=== PATIENT | female | born 1950 | race Caucasian/White ===

== ENCOUNTER → 2017-03-27 | Outpatient (CLI) | payer MEDICARE | END | disposition home or self-care (01) | LOC: LABWHC1 09:51 | PROVIDERS: ATTEND Internal Medicine Endocrinology, Diabetes & Metabolism | DX: E05.80 Other thyrotoxicosis without thyrotoxic crisis or storm (principal) | CPT/HCPCS: 36415; 84439; 84443; 84445; 84480 ==

== ENCOUNTER 2018-04-02 21:32 | Inpatient (IN) | payer MEDICARE ==
--- NOTE | 2018-04-02 22:30 | ED ---
General Adult HPI - General Chief complaint: Weakness Stated complaint: WEAKNESS Source: patient, EMS Mode of arrival: EMS - History of Present Illness Initial comments: Dictation was produced using [employer] dictation software. please excuse any grammatical, word or spelling errors. Chief Complaint: 68-year-old female transferred from outside facility for electro derangement, EKG abnormalities. History of Present Illness: 68-year-old female past medical history diabetes, dyslipidemia, hypothyroidism presents via transfer from outside facility. Patient states she initially presented there for worsening weakness for the past 3 weeks. She was diagnosed with urinary tract infection and completed a course of Macrobid by her primary care physician. Patient was worked up at that facility where she was found to have nonspecific transaminitis , electrolyte derangement, EKG abnormalities. Patient feels much better since being treated at the other facility. Patient was worked up extensively. She did have pain CT of her whole body without any findings of acute processes. The ROS documented in this emergency department record has been reviewed and confirmed by me. Those systems with pertinent positive or negative responses have been documented in the HPI. All other systems are other negative and/or noncontributory. - Related Data Home Medications Medication Instructions Recorded Confirmed Acetaminophen Tab [Tylenol Tab] 1,000 mg PO Q6HR PRN 04/02/18 04/02/18 DULoxetine HCL [Cymbalta] 120 mg PO DAILY 04/02/18 04/02/18 Dicyclomine [Bentyl] 20 mg PO TID 04/02/18 04/02/18 Diphenox-Atrop 2.5-0.025 mg 2 tab PO QID 04/02/18 04/02/18 [Lomotil] Fenofibrate,Micronized 134 mg PO DAILY 04/02/18 04/02/18 [Fenofibrate] Gabapentin [Neurontin] 400 mg PO TID 04/02/18 04/02/18 Lisinopril [Zestril] 2.5 mg PO DAILY 04/02/18 04/02/18 Nitrofurantoin Monohyd/M-Cryst 100 mg PO Q12HR 04/02/18 04/02/18 [Macrobid] Omeprazole 20 mg PO DAILY 04/02/18 04/02/18 metFORMIN HCL 1,000 mg PO BID 07/11/18 07/11/18 sitaGLIPtin [Januvia] 50 mg PO DAILY 04/02/18 04/02/18 Allergies Allergy/AdvReac Type Severity Reaction Status Date / Time NSAIDS (Non-Steroidal Allergy Severe Unknown Verified 04/02/18 22:15 Anti-Inflamma Sulfa (Sulfonamide Allergy Severe Unknown Verified 04/02/18 22:15 Antibiotics) aspirin Allergy Intermediate Unknown Verified 04/02/18 22:15 Penicillins AdvReac Severe Rash/Hives Verified 04/02/18 22:15 erythromycin base AdvReac Diarrhea Verified 04/02/18 22:15 tetracycline AdvReac Rash/Hives Verified 04/02/18 22:15 Review of Systems ROS Statement: Those systems with pertinent positive or pertinent negative responses have been documented in the HPI. ROS Other: All systems not noted in ROS Statement are negative. Past Medical History Past Medical History: Diabetes Mellitus, Hyperlipidemia Additional Past Medical History / Comment(s): Hx opf High liver enzymes History of Any Multi-Drug Resistant Organisms: None Reported Past Surgical History: Appendectomy Past Psychological History: Depression Smoking Status: Former smoker Past Alcohol Use History: Occasional Past Drug Use History: None Reported General Exam - General Exam Comments Initial Comments: PHYSICAL EXAM: General Impression: Alert and oriented x3, not in acute distress HEENT: Normocephalic atraumatic, extra-ocular movements intact, pupils equal and reactive to light bilaterally, mucous membranes moist. Cardiovascular: Heart regular rate and rhythm, S1&S2 audible, no murmurs, rubs or gallops Chest: Lungs clear to auscultation bilaterally, no rhonchi, no wheeze, no rales Abdomen: Mild tenderness to palpation of the abdomen diffusely Musculoskeletal: Pulses present and equal in all extremities, no peripheral edema Motor: Power 5/5 bilaterally, no focal deficits noted Neurological: CN II-XII grossly intact, no focal motor or sensory deficits noted Skin: Intact with no visualized rashes Psych: Normal affect and mood Course Vital Signs 04/02/18 04/02/18 21:39 21:45 Temperature 97.7 F Pulse Rate 84 76 Respiratory 16 16 Rate Blood Pressure 101/49 109/67 O2 Sat by Pulse 95 100 Oximetry Medical Decision Making - Medical Decision Making ED course: 68-year-old female transferred to us for dehydration, electronic derangement and prolonged QT. Electro lites were replaced at transferring facility. Patient is well-appearing at this time. Vital signs are stable. Patient be admitted for continued hydration, electronic replacement and monitoring and cardiac telemetry. Imaging disc were transferred with patient. They'll agreeable to our local EMR. EKG Interpretation: A 12 lead EKG was obtained. It was interpreted by myself and attending physician. There is a P wave before every QRS complex. Rate is 80. Rhythm is normal sinus rhythm. QT is 569. Disposition Clinical Impression: Electrolyte abnormality Disposition: ADMITTED IP TO THIS HOSP Referrals: Dorina Burger MD [Primary Care Provider] - 1-2 days
[2018-04-02] MEDS ORDERED: NALOXONE 0.4 MG/ML 1 ML VIAL IV PRN (23:13)
[2018-04-03] MEDS: MORPHINE SULFATE 2 MG/ML SYRINGE IVP PRN ×4 (01:28→21:20)
[2018-04-03] MEDS: SODIUM CHLORIDE 0.9% 1,000 ML IV SCH ×4 (01:29→23:02)
--- NOTE | 2018-04-03 05:14 | P.HPIM ---
History of Present Illness H&P Date: 04/03/18 Chief Complaint: electrolyte imbalance and elevated liver enzymes 68 y old female , DM newly diagnosed, HLD, and ?hypertension she reports that her legs were jerking and she felt weak, she fell at the pharmacy when she was picking up her prescriptions, this is not her first fall, as she has been feeling weak and falling for the past couple weeks. her family took her home, and then her family insisted on taking her to the hospital , where they found electrolytes imbalance. she reports chronic diarrhea, used to be all day long loose bowel movement , but now controlled to once daily with lomotil. non bloody no black stool , no bleeding. denies any chest pain , no SOB , no fevers, no chills, no nausea no vomiting. she was diagnosed with UTI 2 days ago and received one dose of macrobid so far, denies any dysuria, but reports smelly urine, dark urine , and frequency Her liver enzymes has been elevated since october , and she follows up OP with GI, and all her tests are wnl. per her report November had colitis , resulting in diarrhea and abd cramps, which is chronic now since then. No diagnosis were made per her report, she had colonoscopy done 2 weeks ago and everything reported to be fine, she is still waiting on biopsy. Review of Systems Pertinent positives as noted in HPI. All other systems were reviewed and are negative Past Medical History Past Medical History: Diabetes Mellitus, Hyperlipidemia, Hypertension Additional Past Medical History / Comment(s): Hx of High liver enzymes History of Any Multi-Drug Resistant Organisms: None Reported Past Surgical History: Appendectomy Past Anesthesia/Blood Transfusion Reactions: No Reported Reaction Past Psychological History: Depression Smoking Status: Former smoker Past Alcohol Use History: Occasional Past Drug Use History: None Reported Additional Drug Use History / Comment(s): Pt. quit smoking in September of 2017 - Past Family History Father Family Medical History: Dementia Mother Family Medical History: Cancer Additional Family Medical History / Comment(s): Breast Cancer Medications and Allergies Home Medications Medication Instructions Recorded Confirmed Type Acetaminophen Tab [Tylenol Tab] 1,000 mg PO Q6HR PRN 04/02/18 04/02/18 History DULoxetine HCL [Cymbalta] 120 mg PO DAILY 04/02/18 04/02/18 History Dicyclomine [Bentyl] 20 mg PO TID 04/02/18 04/02/18 History Diphenox-Atrop 2.5-0.025 mg 2 tab PO QID 04/02/18 04/02/18 History [Lomotil] Fenofibrate,Micronized 134 mg PO DAILY 04/02/18 04/02/18 History [Fenofibrate] Gabapentin [Neurontin] 400 mg PO TID 04/02/18 04/02/18 History Lisinopril [Zestril] 2.5 mg PO DAILY 04/02/18 04/02/18 History Nitrofurantoin Monohyd/M-Cryst 100 mg PO Q12HR 04/02/18 04/02/18 History [Macrobid] Omeprazole 20 mg PO DAILY 04/02/18 04/02/18 History metFORMIN HCL 1,000 mg PO BID 04/02/18 04/02/18 History sitaGLIPtin [Januvia] 50 mg PO DAILY 04/02/18 04/02/18 History Allergies Allergy/AdvReac Type Severity Reaction Status Date / Time NSAIDS (Non-Steroidal Allergy Severe Unknown Verified 04/02/18 22:15 Anti-Inflamma Sulfa (Sulfonamide Allergy Severe Unknown Verified 04/02/18 22:15 Antibiotics) aspirin Allergy Intermediate Unknown Verified 04/02/18 22:15 Penicillins AdvReac Severe Rash/Hives Verified 04/02/18 22:15 erythromycin base AdvReac Diarrhea Verified 04/02/18 22:15 tetracycline AdvReac Rash/Hives Verified 04/02/18 22:15 Physical Exam Vitals: Vital Signs Temp Pulse Pulse Resp BP BP Pulse Ox 04/03/18 00:16 97.6 F 76 16 110/70 97 04/02/18 23:29 84 16 119/68 95 04/02/18 22:55 15 L 15 114/69 95 04/02/18 21:45 76 16 109/67 100 04/02/18 21:39 97.7 F 84 16 101/49 95 Intake and Output 04/02/18 04/02/18 04/03/18 14:59 22:59 06:59 Other: Weight 81.647 kg Constitutional: No acute distress, conversant, pleasant Eyes: Anicteric sclerae, moist conjunctiva, no lid-lag Pupils equal round reactive to light ENMT: NC/AT Oropharynx clear, no erythema, or exudates Neck: Supple, FROM, no masses, or JVD No carotid bruits No thyromegaly Lungs: Clear to auscultation Clear to percussion Normal respiratory effort, no accessory muscle use Cardiovascular: Heart regular in rate and rhythm, No murmurs, gallops, or rubs No peripheral edema Abdominal: Soft, tender to deep palpation over the left lower quadrant and left side of the abdomen no rebound tenderness, no guarding, rebound or rigidity Abdomen moving with respiration Normoactive bowel sounds No hepatomegaly, No splenomegaly No palpable mass No abdominal wall hernia noted Skin: Normal temperature, tone, texture, turgor No induration No subcutaneous nodules No rash, lesions No ulcers Extremities: No digital cyanosis No clubbing Pedal pulses intact and symmetrical Radial pulses intact and symmetrical No calf tenderness Psychiatric: Alert and oriented to person, place and time Appropriate affect fair judgment Neuro Muscles Strength 4/5 in all 4 extremities Sensation to light touch grossly present throughout Cranial nerves II-XII grossly intact No focal sensory deficits Lymphatics: no palpable cervical or supraclavicular , or inguinal lymph nodes Thrombosis Risk Factor Assmnt - Choose All That Apply Any of the Below Risk Factors Present?: Yes Each Factor Represents 1 point: Obesity (BMI >25) Other Risk Factors: Yes Each Risk Factor Represents 2 Points: Age 61-74 years Thrombosis Risk Factor Assessment Total Risk Factor Score: 3 Thrombosis Risk Factor Assessment Level: Moderate Risk Assessment and Plan Assessment: 68 y o female with history of diabetes mellitus newly diagnosed,? hypertension, and chronic diarrhea, patient [facility] with anticipated length of stay of more than 2 days due to s/p fall , presented with electrolytes abnormalities (hypokalemia ) and chronic diarrhea , abd pain and elevated liver enzymes. Patient initially went to a different facility where she was diagnosed with these abnormalities her electrolytes were replaced she was also found to have QT prolongation for which she was transferred to our hospital Plan: Electrolyte abnormalities most likely secondary to chronic diarrhea Hypokalemia Follow-up levels and replace as needed Follow-up potassium and magnesium and phosphorus levels Hyperbilirubinemia and elevated liver enzymes Per patient report this is chronic Check abdominal ultrasound Avoid hepatotoxic meds Fenofibrate on hold Tylenol on hold Recent diagnosis of UTI only received 1 dose of antibiotic Patient continues to have symptoms of frequent urination and odor with the urine Check urinalysis Hold antibiotics for now Chronic diarrhea and abdominal pain patient follows up with GI as an outpatient A battery of workup was diagnosed as now patient per patient report, everything was reported to her to be within normal limits including colonoscopy 2 weeks ago and CAT scan of the abdomen Consult to GI service for their input Symptomatic control of abdominal pain and diarrhea Diabetes mellitus on oral hypoglycemic agents Check A1c level Insulin sliding scale Hypertension continue lisinopril low-dose QT interval prolongation this has resolved after electrolyte replacement at the other facility Diet as tolerated carbohydrate consistent diet DVT prophylaxis on heparin subcu 3 times a day Follow-up UA Follow-up labs and electrolytes Preformed a thorough record review from recent recent visit to [place] facility her labs and EKG were reviewed where she had total bilirubin elevated at more than 5, and potassium at 2.8 Surrogate decision-maker: Patient's son CODE STATUS: Full code Discussed with: Patient, ER, RN Anticipated discharge: 48-[address]: Home A total of 50 minutes was spent on the care of this complex patient more than 50 % of the time was spent in counseling and care coordination.
[2018-04-03] MEDS: ONDANSETRON 4 MG/2 ML VIAL IVP PRN ×2 (06:34→16:02)
[2018-04-03] MEDS ORDERED: PANTOPRAZOLE 40 MG TABLET PO SCH (07:30)
[2018-04-03 07:57] LABS: Glucose,Whole Blood 71 mg/dL (75-99)
[2018-04-03] MEDS: INSULIN ASPART 100 UNIT/ML 1 ML 10 ML VIAL SQ SCH ×4 (08:03→21:48)
[2018-04-03] MEDS: DULoxetine HCL 60 MG CAPSULE.DR PO SCH (08:07)
[2018-04-03] MEDS: LISINOPRIL 2.5 MG TAB PO SCH (08:07)
[2018-04-03] MEDS: GABAPENTIN 400 MG CAP PO SCH ×3 (08:07→21:22)
[2018-04-03] MEDS: HEPARIN SODIUM,PORCINE 5,000 UNIT/ML 1 ML VIAL SQ SCH ×3 (08:07→23:02)
[2018-04-03 08:27] LABS: Anisocytosis Slight; Basophils # (A) 0.1 k/uL (0-0.2); Basophils % (A) 1 %; Eosinophils % (A) 0 %; HCT 40.9 % (34.0-46.0); HGB 13.2 gm/dL (11.4-16.0); Lymphocytes # (A) 2.2 k/uL (1.0-4.8); Lymphocytes % (A) 32 %; MCH 30.2 pg (25.0-35.0); MCHC 32.3 g/dL (31.0-37.0); MCV 93.6 fL (80.0-100.0); Macrocytosis Slight; Mean Platelet Volume 7.4; Monocytes # (A) 0.4 k/uL (0-1.0); Monocytes % (A) 5 %; Neutrophils # (A) 4.1 k/uL (1.3-7.7); Neutrophils % (A) 60 %; Platelet Count 234 k/uL (150-450); RBC 4.37 m/uL (3.80-5.40); WBC 6.9 k/uL (3.8-10.6)
[2018-04-03 08:47] LABS: ALT 162 U/L (9-52); AST 550 U/L (14-36); Albumin 3.1 g/dL (3.5-5.0); Alkaline Phosphatase 245 U/L (38-126); Anion Gap 7 mmol/L; Blood Urea Nitrogen 5 mg/dL (7-17); Carbon Dioxide 28 mmol/L (22-30); Chloride 104 mmol/L (98-107); Glucose 78 mg/dL (74-99); Magnesium 1.4 mg/dL (1.6-2.3); Phosphorus 3.2 mg/dL (2.5-4.5); Potassium 3.7 mmol/L (3.5-5.1); Sodium 139 mmol/L (137-145); Total Bilirubin 5.9 mg/dL (0.2-1.3); Total Protein 5.8 g/dL (6.3-8.2)
[2018-04-03] MEDS: MAGNESIUM SULFATE-D5W PMX 1 GM in DEXTROSE/WATER 1 100ML.BAG IVPB SCH ×2 (10:01→11:21)
[2018-04-03 10:25] LABS: Appearance,Urine Cloudy (Clear); Bacteria,Urine Many /hpf; Bilirubin,Urine 1+ (Negative); Blood,Urine Negative (Negative); Color,Urine Yellow; Glucose,Urine (UA) Negative (Negative); Ketones,Urine Negative (Negative); Leukocyte Esterase,Urine Small (Negative); Mucus,Urine Rare /hpf; Nitrite,Urine Negative (Negative); Protein,Urine Negative (Negative); RBC,Urine <1 /hpf (0-5); Specific Gravity,Urine 1.019 (1.001-1.035); WBC,Urine 8 /hpf (0-5)
[2018-04-03 11:41] LABS: Glucose,Whole Blood 113 mg/dL (75-99)
[2018-04-03] MEDS ORDERED: LOPERAMIDE 2 MG CAP PO STA (12:47)
--- NOTE | 2018-04-03 12:50 | P.CONS ---
History of Present Illness - Reason for Consult Consult date: 04/03/18 Diarrhea Requesting physician: Domi Chowdhury - History of Present Illness 68-year-old female transferred from [facility] recently treated in the outpatient setting for UTI; Macrobid, with a history of remote EtOH abuse quit September 2017, hepatic steatosis per US abdomen, with chronic elevation of liver enzymes being monitored in the outpatient setting, diabetes mellitus, hyperlipidemia, hypertension, depression admitted with persistent painless nonbloody diarrhea with electrolyte disturbance weakness. Patient has been experiencing nonbloody diarrhea multiple times a day since September unrelieved with antidiarrheals. She was evaluated earlier this year in September at an outside facility and told she had colitis. She has no personal history of colitis prior to September 2017. No familial history of inflammatory bowel disease. She underwent screening colonoscopy February [address] Burnett at [facility]; prep was poor however visualized portions of the colon appeared normal. No evidence of colorectal neoplasia or diverticular disease. Biopsies were obtained and reported as benign colonic mucosa with no inflammatory changes. She is visibly jaundiced total bilirubin is 5.9. AST 550. ALT 162. AP to 45. Upon review of medical records liver function tests 03/27/2018 was total bilirubin 4.8. AST 510. ALT 204. AP 244. Outpatient US abdomen demonstrated hepatic steatosis. Patient states she was treated with steroids by her PCP in regards to her jaundice but had a hyperglycemic reaction and discontinued them. She also reports that she had a full serologic chronic liver disease investigation of her jaundice by GI PA. CT abdomen and pelvis at [facility] reported a large hiatal hernia liver spleen gallbladder appeared normal with nondilated bile ducts and no ascites. Admission white count 6.9. Hemoglobin 13.2. Platelet 234. BUN 5. Creatinine 0.6. No recent medications with the exception of being placed on metformin earlier in the year shortly after her diarrhea started. She was told that metformin could have a diarrhea effect and stopped for 2 weeks but it did not improve her diarrhea. Her last dose of metformin was yesterday. Review of Systems Constitutional: Denies fever, chills, sweats, weight gain, or loss. HEENT: Negative for migraines, blurred vision or loss, earaches, drainage, tinnitus, oral mucosal lesions, dysphagia, or odynophagia. CARDIAC: Negative for chest pain, arrhythmias, or palpitation. RESPIRATORY: Negative for shortness of breath, hemoptysis, cough, or sputum production. GI: See HPI for pertinent findings. : Negative for hematuria, urgency, frequency, polyuria, or dysuria. GYNc: Negative vaginal discharge. MUSCULOSKELETAL: Negative for muscle aches, swelling, arthritis, and arthralgias. NEUROLOGIC: Negative for stroke or TIA. ENDOCRINE: Negative for thyroid problems. SKIN: Negative for rash or itching. PSYCHIATRIC: Negative history for depression and anxiety Past Medical History Past Medical History: Diabetes Mellitus, Hyperlipidemia, Hypertension Additional Past Medical History / Comment(s): Hx of High liver enzymes History of Any Multi-Drug Resistant Organisms: None Reported Past Surgical History: Appendectomy Past Anesthesia/Blood Transfusion Reactions: No Reported Reaction Past Psychological History: Depression Smoking Status: Former smoker Past Alcohol Use History: Occasional Past Drug Use History: None Reported Additional Drug Use History / Comment(s): Pt. quit smoking in September of 2017 - Past Family History Father Family Medical History: Dementia Mother Family Medical History: Cancer Additional Family Medical History / Comment(s): Breast Cancer Medications and Allergies Home Medications Medication Instructions Recorded Confirmed Type Acetaminophen Tab [Tylenol Tab] 1,000 mg PO Q6HR PRN 04/02/18 04/02/18 History DULoxetine HCL [Cymbalta] 120 mg PO DAILY 04/02/18 04/02/18 History Dicyclomine [Bentyl] 20 mg PO TID 04/02/18 04/02/18 History Diphenox-Atrop 2.5-0.025 mg 2 tab PO QID 04/02/18 04/02/18 History [Lomotil] Fenofibrate,Micronized 134 mg PO DAILY 04/02/18 04/02/18 History [Fenofibrate] Gabapentin [Neurontin] 400 mg PO TID 04/02/18 04/02/18 History Lisinopril [Zestril] 2.5 mg PO DAILY 04/02/18 04/02/18 History Nitrofurantoin Monohyd/M-Cryst 100 mg PO Q12HR 04/02/18 04/02/18 History [Macrobid] Omeprazole 20 mg PO DAILY 04/02/18 04/02/18 History metFORMIN HCL 1,000 mg PO BID 04/02/18 04/02/18 History sitaGLIPtin [Januvia] 50 mg PO DAILY 04/02/18 04/02/18 History Allergies Allergy/AdvReac Type Severity Reaction Status Date / Time NSAIDS (Non-Steroidal Allergy Severe Unknown Verified 04/02/18 22:15 Anti-Inflamma Sulfa (Sulfonamide Allergy Severe Unknown Verified 04/02/18 22:15 Antibiotics) aspirin Allergy Intermediate Unknown Verified 04/02/18 22:15 Penicillins AdvReac Severe Rash/Hives Verified 04/02/18 22:15 erythromycin base AdvReac Diarrhea Verified 04/02/18 22:15 tetracycline AdvReac Rash/Hives Verified 04/02/18 22:15 Physical Exam Vitals: Vital Signs Temp Pulse Pulse Resp BP BP Pulse Ox 04/03/18 08:00 71 18 04/03/18 07:10 97.7 F 71 18 122/75 95 04/03/18 00:16 97.6 F 76 16 110/70 97 04/02/18 23:29 84 16 119/68 95 04/02/18 22:55 15 L 15 114/69 95 04/02/18 21:45 76 16 109/67 100 04/02/18 21:39 97.7 F 84 16 101/49 95 Intake and Output 04/02/18 04/03/18 04/03/18 22:59 06:59 14:59 Intake Total 600 Balance 600 Intake: Intake, IV Titration 600 Amount Sodium Chloride 0.9% 1, 600 000 ml @ 100 mls/hr IV . Q10H [facility] Rx#:[id number] Other: Voiding Method Toilet Toilet # Voids 3 # Bowel Movements 0 Weight 81.647 kg General appearance: The patient is alert, oriented, in no acute distress. Visibly jaundice HET: Head is normocephalic and atraumatic. Pupils are equal and reactive. Sclerae icterus. Oropharynx is clear without lesions. Neck: Supple without lymphadenopathy. Trachea midline. Heart: S1 S2. Regular rate and rhythm. Lungs: No crackles or wheezes are heard. Abdomen: Soft, nontender, nondistended with bowel sounds. No peritoneal signs. No palpable organomegaly or masses. Extremities: Normal skin color and turgor. No cyanosis, rash, ulceration, clubbing, or edema. Radial and pedal pulses are 2/4 bilaterally. Neurological: No focal deficits. Strength and sensation are grossly intact. Results CBC & Chem 7: 04/03/18 07:05 04/04/18 07:58 Labs: Abnormal Lab Results - Last 24 Hours (Table) 04/03/18 04/03/18 04/03/18 Range/Units 07:05 07:05 07:51 RDW 19.0 H (11.5-15.5) % BUN 5 L (7-17) mg/dL POC Glucose (mg/dL) 71 L (75-99) mg/dL Magnesium 1.4 L (1.6-2.3) mg/dL Total Bilirubin 5.9 H (0.2-1.3) mg/dL AST 550 H (14-36) U/L ALT 162 H (9-52) U/L Alkaline Phosphatase 245 H (38-126) U/L Total Protein 5.8 L (6.3-8.2) g/dL Albumin 3.1 L (3.5-5.0) g/dL Urine Appearance (Clear) Urine Bilirubin (Negative) Ur Leukocyte Esterase (Negative) Urine WBC (0-5) /hpf Urine Bacteria (None) /hpf Urine Mucus (None) /hpf 04/03/18 04/03/18 Range/Units 09:44 11:08 RDW (11.5-15.5) % BUN (7-17) mg/dL POC Glucose (mg/dL) 113 H (75-99) mg/dL Magnesium (1.6-2.3) mg/dL Total Bilirubin (0.2-1.3) mg/dL AST (14-36) U/L ALT (9-52) U/L Alkaline Phosphatase (38-126) U/L Total Protein (6.3-8.2) g/dL Albumin (3.5-5.0) g/dL Urine Appearance Cloudy H (Clear) Urine Bilirubin 1+ H (Negative) Ur Leukocyte Esterase Small H (Negative) Urine WBC 8 H (0-5) /hpf Urine Bacteria Many H (None) /hpf Urine Mucus Rare H (None) /hpf Assessment and Plan (1) Diarrhea Narrative/Plan: Etiology unclear cannot exclude medication related (metformin). Recent colonoscopy unremarkable negative biopsies. Current Visit: Yes Status: Acute Code(s): R19.7 - DIARRHEA, UNSPECIFIED SNOMED Code(s): 62737863 (2) Hepatic steatosis Current Visit: Yes Status: Acute Code(s): K76.0 - FATTY (CHANGE OF) LIVER, NOT ELSEWHERE CLASSIFIED SNOMED Code(s): 821352529 (3) Jaundice Narrative/Plan: Suspect a component of steatohepatitis with superimposed alcohol hepatitis history of underlying EtOH abuse however confirmation of chronic liver disease autoimmune disease cannot be entirely excluded until office records can be reviewed. Current Visit: Yes Status: Acute Code(s): R17 - UNSPECIFIED JAUNDICE SNOMED Code(s): 30945138 (4) Elevated liver enzymes Current Visit: Yes Status: Acute Code(s): R74.8 - ABNORMAL LEVELS OF OTHER SERUM ENZYMES SNOMED Code(s): 524341241 (5) Diabetes Current Visit: Yes Status: Acute Code(s): E11.9 - TYPE 2 DIABETES MELLITUS WITHOUT COMPLICATIONS SNOMED Code(s): 98406572 (6) Hyperlipidemia Current Visit: Yes Status: Acute Code(s): E78.5 - HYPERLIPIDEMIA, UNSPECIFIED SNOMED Code(s): 43163488 Plan: 1. Stool studies; culture, Giardia antigen, Clostridium difficile toxin, lactoferrin, Calprotectin. Celiac panel. 2. Acute hepatitis panel. AFP. Hold metformin. Imodium 2 mg 3 times daily will provide 4 mg dose 1 now. 3. US abdomen. 4. Diabetic diet as tolerated. We'll review office records to review if serologic workup for chronic liver disease has been obtained. 5. MRI liver further evaluation of jaundice. Possible liver biopsy if not performed previously. Thank you for this kind referral and the opportunity to participate in the care of your patient. This consultation was discussed with Dr. Burnett. The impression and plan of care have been directed as dictated.
[2018-04-03 12:59] VITALS: BMI 29.0
--- NOTE | 2018-04-03 14:34 | US ---
EXAMINATION TYPE: US abdomen complete DATE OF EXAM: 04/03/2018 COMPARISON: Outside CT on PACS from yesterday. CLINICAL HISTORY: elevated liver enzymes. Elevated liver enzymes EXAM MEASUREMENTS: Liver Length: 13.2 cm Gallbladder Wall: 0.4 cm CBD: 0.4 cm Spleen: 10.0 cm Right Kidney: 10.3 x 4.6 x 4.9 cm Left Kidney: 10.2 x 4.9 x 4.8 cm Difficult and limited study due to patient body habitus Pancreas: visualized portions appear hyperechoic, limited by overlying midline bowel gas Liver: visualized portions appear mildly heterogeneous, scanned intercostally, limited by rib shadow ing Gallbladder: wall appears mildly thickened, scanned intercostally, limited by rib shadowing Evidence for sonographic Mcleod's sign: yes CBD: wnl Spleen: wnl Right Kidney: wnl Left Kidney: wnl Upper IVC: wnl Abd Aorta: visualized portions wnl, limited by overlying midline bowel gas The visualized liver is slightly heterogeneous likely reflecting mild fatty infiltration. The intrah epatic portion of the IVC and visualized abdominal aorta are within normal limits. There is no evide nce of cholelithiasis. Common bile duct is unremarkable. The visualized portions of the pancreas ar e homogenous. The spleen is unremarkable. Kidneys are symmetric and free of hydronephrosis. No ashley al lesions are seen. IMPRESSION: Heterogeneous hyperechoic appearance of liver is likely on basis of mild diffuse fatty in filtration. Imaging guided random biopsy for tissue analysis can be performed if desired.
[2018-04-03] MEDS: LOPERAMIDE 2 MG CAP PO SCH ×2 (15:57→21:21)
[2018-04-03 17:03] LABS: Glucose,Whole Blood 145 mg/dL (75-99)
[2018-04-03 17:19] LABS: Hemoglobin A1C 6.7 % (4.0-6.0)
[2018-04-03 21:31] LABS: Glucose,Whole Blood 128 mg/dL (75-99)
[2018-04-04] MEDS: MORPHINE SULFATE 2 MG/ML SYRINGE IVP PRN ×4 (04:30→21:16)
[2018-04-04 07:54] LABS: Glucose,Whole Blood 83 mg/dL (75-99)
[2018-04-04] MEDS: INSULIN ASPART 100 UNIT/ML 1 ML 10 ML VIAL SQ SCH ×4 (08:17→20:49)
[2018-04-04 08:29] LABS: INR 1.4 (<1.2); Prothrombin Time 13.4 sec (9.0-12.0)
[2018-04-04 08:45] LABS: ALT 155 U/L (9-52); AST 493 U/L (14-36); Albumin 3.1 g/dL (3.5-5.0); Alkaline Phosphatase 252 U/L (38-126); Anion Gap 9 mmol/L; Blood Urea Nitrogen 7 mg/dL (7-17); Calcium 8.6 mg/dL (8.4-10.2); Carbon Dioxide 25 mmol/L (22-30); Chloride 105 mmol/L (98-107); Glucose 91 mg/dL (74-99); Potassium 3.9 mmol/L (3.5-5.1); Sodium 139 mmol/L (137-145); Total Bilirubin 5.5 mg/dL (0.2-1.3); Total Protein 5.8 g/dL (6.3-8.2)
[2018-04-04] MEDS: DULoxetine HCL 60 MG CAPSULE.DR PO SCH (09:15)
[2018-04-04] MEDS: FAMOTIDINE 20 MG TAB PO SCH (09:15)
[2018-04-04] MEDS: LISINOPRIL 2.5 MG TAB PO SCH (09:16)
[2018-04-04] MEDS: GABAPENTIN 400 MG CAP PO SCH ×3 (09:16→21:15)
[2018-04-04] MEDS: HEPARIN SODIUM,PORCINE 5,000 UNIT/ML 1 ML VIAL SQ SCH (09:16)
[2018-04-04] MEDS: LOPERAMIDE 2 MG CAP PO SCH ×3 (09:17→21:16)
--- NOTE | 2018-04-04 10:37 | P.PN ---
Subjective Progress Note Date: 04/04/18 Principal diagnosis: Diarrhea jaundice elevated liver enzymes No further episodes of diarrhea therefore stool studies not obtained. MRI liver completed today secondary to elevated liver enzymes. Denies abdominal pain. Patient states no history of liver biopsy. Last alcohol was in September. Objective - Vital Signs Vital signs: Vital Signs Temp 98.8 F 04/04/18 07:00 Pulse 73 04/04/18 08:00 Resp 18 04/04/18 08:00 BP 123/73 04/04/18 07:00 Pulse Ox 94 L 04/04/18 07:00 Intake & Output 04/03/18 04/04/18 04/04/18 18:59 06:59 18:59 Intake Total 1140 480 Balance 1140 480 Weight 81.647 kg Intake: IV 700 Sodium Chloride 0.9% 1, 700 000 ml @ 100 mls/hr IV . Q10H SHANEKA Rx#:[id number] Oral 440 480 Other: Voiding Method Toilet Toilet # Voids 2 - Exam General appearance: The patient is alert, oriented, in no acute distress. Jaundice. HET: Head is normocephalic and atraumatic. Pupils are equal and reactive. Sclerae icterus. Oropharynx is clear without lesions. Neck: Supple without lymphadenopathy. Trachea midline. Heart: S1 S2. Regular rate and rhythm. Lungs: No crackles or wheezes are heard. Abdomen: Soft, nontender, nondistended with bowel sounds. No peritoneal signs. No palpable organomegaly or masses. Extremities: Normal skin color and turgor. No cyanosis, rash, ulceration, clubbing, or edema. Radial and pedal pulses are 2/4 bilaterally. Neurological: No focal deficits. Strength and sensation are grossly intact. - Labs CBC & Chem 7: 04/03/18 07:05 04/04/18 07:58 Labs: Abnormal Lab Results - Last 24 Hours (Table) 04/03/18 04/03/18 04/03/18 Range/Units 07:05 07:05 11:08 PT (9.0-12.0) sec INR (<1.2) POC Glucose (mg/dL) 113 H (75-99) mg/dL Hemoglobin A1c 6.7 H (4.0-6.0) % Total Bilirubin (0.2-1.3) mg/dL AST (14-36) U/L ALT (9-52) U/L Alkaline Phosphatase (38-126) U/L C-Reactive Protein 41.6 H (<10.0) mg/L Total Protein (6.3-8.2) g/dL Albumin (3.5-5.0) g/dL 04/03/18 04/03/18 04/04/18 Range/Units 16:59 21:29 07:58 PT (9.0-12.0) sec INR (<1.2) POC Glucose (mg/dL) 145 H 128 H (75-99) mg/dL Hemoglobin A1c (4.0-6.0) % Total Bilirubin 5.5 H (0.2-1.3) mg/dL AST 493 H (14-36) U/L ALT 155 H (9-52) U/L Alkaline Phosphatase 252 H (38-126) U/L C-Reactive Protein (<10.0) mg/L Total Protein 5.8 L (6.3-8.2) g/dL Albumin 3.1 L (3.5-5.0) g/dL 04/04/18 Range/Units 07:58 PT 13.4 H (9.0-12.0) sec INR 1.4 H (<1.2) POC Glucose (mg/dL) (75-99) mg/dL Hemoglobin A1c (4.0-6.0) % Total Bilirubin (0.2-1.3) mg/dL AST (14-36) U/L ALT (9-52) U/L Alkaline Phosphatase (38-126) U/L C-Reactive Protein (<10.0) mg/L Total Protein (6.3-8.2) g/dL Albumin (3.5-5.0) g/dL Microbiology - Last 24 Hours (Table) 04/03/18 09:44 Urine Culture - Preliminary Urine,Clean Catch Assessment and Plan (1) Jaundice Narrative/Plan: Suspect a component of 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 Current Visit: Yes Status: Acute Code(s): R17 - UNSPECIFIED JAUNDICE SNOMED Code(s): 64142899 (2) Diarrhea Narrative/Plan: Etiology unclear cannot exclude medication related (metformin). Recent colonoscopy unremarkable negative biopsies. Presently diarrhea has stopped. Current Visit: Yes Status: Acute Code(s): R19.7 - DIARRHEA, UNSPECIFIED SNOMED Code(s): 97301779 (3) Hepatic steatosis Current Visit: Yes Status: Acute Code(s): K76.0 - FATTY (CHANGE OF) LIVER, NOT ELSEWHERE CLASSIFIED SNOMED Code(s): 653836869 (4) Elevated liver enzymes Current Visit: Yes Status: Acute Code(s): R74.8 - ABNORMAL LEVELS OF OTHER SERUM ENZYMES SNOMED Code(s): 928293959 (5) Diabetes Current Visit: Yes Status: Acute Code(s): E11.9 - TYPE 2 DIABETES MELLITUS WITHOUT COMPLICATIONS SNOMED Code(s): 62249639 (6) Hyperlipidemia Current Visit: Yes Status: Acute Code(s): E78.5 - HYPERLIPIDEMIA, UNSPECIFIED SNOMED Code(s): 18778145 Plan: 1. Office records reviewed patient's liver enzymes in January at outside facility total bilirubin 0.9 AST 361. ALT 207. AP 157. Liver enzymes repeated one month ago total bilirubin was 1.5. AST 409. ALT 279. AP 164. INR 1.1. She was advised liver biopsy if her jaundice and/or enzymes worsen. Considering patient is now jaundice over the last month liver biopsy was advised. We'll attempt liver biopsy today if unable to perform will need to be done as an outpatient. PT/INR/CMP 1 week. MRI results pending. We'll continue to follow with you. Continue with Imodium. Continue to hold metformin. Follow-up in [facility] office April 18. Assessment and plan a care discussed with Dr. Burnett
[2018-04-04 11:20] LABS: Glucose,Whole Blood 128 mg/dL (75-99)
--- NOTE | 2018-04-04 13:20 | P.PN ---
Subjective Progress Note Date: 04/04/18 Principal diagnosis: Weakness Patient is feeling better today, her last bowel movement was on Saturday. She still having some lower abdominal pain. Objective - Vital Signs Vital signs: Vital Signs Temp 98.8 F 04/04/18 07:00 Pulse 73 04/04/18 08:00 Resp 18 04/04/18 08:00 BP 123/73 04/04/18 07:00 Pulse Ox 94 L 04/04/18 07:00 Intake & Output 04/03/18 04/04/18 04/04/18 18:59 06:59 18:59 Intake Total 1140 480 Balance 1140 480 Weight 81.647 kg Intake: IV 700 Sodium Chloride 0.9% 1, 700 000 ml @ 100 mls/hr IV . Q10H SHANEKA Rx#:[id number] Oral 440 480 Other: Voiding Method Toilet Toilet # Voids 2 - Exam Constitutional: No acute distress, conversant, pleasant Eyes:Anicteric sclerae, moist conjunctiva, no lid-lag, PERRLA, ENMT: Oropharynx clear, no erythema, exudates Neck: Supple, FROM, no masses, or JVD, No carotid bruits, No thyromegaly Lungs: Clear to auscultation, Clear to percussion, Normal respiratory effort, no accessory muscle use Cardiovascular: Heart regular in rate and rhythm, No murmurs, gallops, or rubs, No peripheral edema Abdominal: Soft, Nontender, no guarding, rebound or rigidity, Normoactive bowel sounds, No hepatomegaly, No splenomegaly, No palpable mass Skin: Normal temperature, tone, texture, turgor, no induration, No subcutaneous nodules, No rash, lesions, No ulcers Extremities: No digital cyanosis, No clubbing, Pedal pulses intact and symmetrical, Radial pulses intact and symmetrical, No calf tenderness Psychiatric: Alert and oriented to person, place and time, appropriate affect, intact judgement Neuro: Muscles Strength 5/5 in all 4 extremities, Sensation to light touch grossly present throughout, Cranial nerves II-XII grossly intact, no focal sensory deficits - Labs CBC & Chem 7: 04/03/18 07:05 04/04/18 07:58 Labs: Abnormal Lab Results - Last 24 Hours (Table) 04/03/18 04/03/18 04/03/18 Range/Units 07:05 07:05 16:59 PT (9.0-12.0) sec INR (<1.2) POC Glucose (mg/dL) 145 H (75-99) mg/dL Hemoglobin A1c 6.7 H (4.0-6.0) % Total Bilirubin (0.2-1.3) mg/dL AST (14-36) U/L ALT (9-52) U/L Alkaline Phosphatase (38-126) U/L C-Reactive Protein 41.6 H (<10.0) mg/L Total Protein (6.3-8.2) g/dL Albumin (3.5-5.0) g/dL 04/03/18 04/04/18 04/04/18 Range/Units 21:29 07:58 07:58 PT 13.4 H (9.0-12.0) sec INR 1.4 H (<1.2) POC Glucose (mg/dL) 128 H (75-99) mg/dL Hemoglobin A1c (4.0-6.0) % Total Bilirubin 5.5 H (0.2-1.3) mg/dL AST 493 H (14-36) U/L ALT 155 H (9-52) U/L Alkaline Phosphatase 252 H (38-126) U/L C-Reactive Protein (<10.0) mg/L Total Protein 5.8 L (6.3-8.2) g/dL Albumin 3.1 L (3.5-5.0) g/dL 04/04/18 Range/Units 11:10 PT (9.0-12.0) sec INR (<1.2) POC Glucose (mg/dL) 128 H (75-99) mg/dL Hemoglobin A1c (4.0-6.0) % Total Bilirubin (0.2-1.3) mg/dL AST (14-36) U/L ALT (9-52) U/L Alkaline Phosphatase (38-126) U/L C-Reactive Protein (<10.0) mg/L Total Protein (6.3-8.2) g/dL Albumin (3.5-5.0) g/dL Microbiology - Last 24 Hours (Table) 04/03/18 09:44 Urine Culture - Preliminary Urine,Clean Catch Assessment and Plan Plan: Electrolyte abnormalities most likely secondary to chronic diarrhea/Hypokalemia Replaced Follow-up potassium and magnesium and phosphorus levels Hyperbilirubinemia and elevated liver enzymes Problem with the liver started about 2-3 months ago. Seen by GI Ultrasound abdomen reviewed MRI pending Liver biopsy recommended Tylenol and fenofibrate on hold because of liver toxicity UTI Continue ceftriaxone 1 g IV daily Urine cultures Diabetes mellitus on oral hypoglycemic agents A1c 6.7 Insulin sliding scale Hypertension Continue lisinopril low-dose DVT prophylaxis on heparin subcu 3 times a day
--- NOTE | 2018-04-04 13:41 | MR ---
MR liver with and without contrast and MRCP Multiplanar multisequence and postcontrast images obtained through the liver following 7.5 cc Gadavis t IV. Three-dimensional reconstructions performed through the biliary system. Correlation to outside CT abdomen pelvis 04/02/2018, ultrasound abdomen 04/03/2018 There is a large hiatal hernia with partial intrathoracic stomach present. Proximal duodenum shows pr obable large duodenal diverticulum with retained secretions or food particles at the second and third portion, there is dilation to approximately 5 cm at this level similar to CT scan. There is normal c aliber present at the fourth portion of the duodenum. The liver does not show signal drop on out of phase imaging to suggest hepatic steatosis. There is ev entration of right hemidiaphragm, no definite liver enlargement. Gallbladder shows no filling defect. No definite dilation of intra or extrahepatic biliary ducts. 3-dimensional reconstructions are somew hat limited. The liver shows somewhat heterogeneous enhancement. Periportal edema changes are noted, increased sig nal on T2-weighted sequences in the periportal location, gradual delayed periportal enhancement is pr esent. There may be small pleural effusions present, associated atelectasis. The kidneys, adrenal glands, spleen, pancreas shows stable appearance. No significant abnormality. IMPRESSION: Findings consistent with hepatitis. Suspect a large duodenal diverticulum. Fixed intratho racic stomach as described. Correlate for additional nonspecific findings above.
[2018-04-04] MEDS: cefTRIAXone IN SWFI 1,000 MG/10 ML SYRINGE IVP SCH (14:02)
[2018-04-04] MEDS: SODIUM CHLORIDE 0.9% 1,000 ML IV SCH ×2 (15:34→21:17)
[2018-04-04 17:08] LABS: Gliadin AB IgA, Unit 5.2 U/mL
[2018-04-04 17:12] LABS: Hepatitis A Antibody IgM Non-Reactive (Non-Reactive); Hepatitis B Core IgM Non-Reactive (Non-Reactive)
[2018-04-04 17:28] LABS: Glucose,Whole Blood 139 mg/dL (75-99)
[2018-04-04 20:49] LABS: Glucose,Whole Blood 106 mg/dL (75-99)
[2018-04-05] MEDS: MORPHINE SULFATE 2 MG/ML SYRINGE IVP PRN ×2 (05:13→09:05)
[2018-04-05 06:39] LABS: Glucose,Whole Blood 91 mg/dL (75-99)
[2018-04-05] MEDS: INSULIN ASPART 100 UNIT/ML 1 ML 10 ML VIAL SQ SCH ×4 (07:40→21:46)
[2018-04-05] MEDS: LISINOPRIL 2.5 MG TAB PO SCH (09:00)
[2018-04-05] MEDS: DULoxetine HCL 60 MG CAPSULE.DR PO SCH (09:00)
[2018-04-05] MEDS: LOPERAMIDE 2 MG CAP PO SCH ×3 (09:00→21:41)
[2018-04-05] MEDS: GABAPENTIN 400 MG CAP PO SCH ×3 (09:00→21:40)
[2018-04-05] MEDS: FAMOTIDINE 20 MG TAB PO SCH (09:01)
[2018-04-05] MEDS: SODIUM CHLORIDE 0.9% 1,000 ML IV SCH (12:01)
[2018-04-05 12:05] LABS: Glucose,Whole Blood 129 mg/dL (75-99)
[2018-04-05] MEDS: cefTRIAXone IN SWFI 1,000 MG/10 ML SYRINGE IVP SCH (12:37)
--- NOTE | 2018-04-05 12:58 | P.PN ---
Subjective Progress Note Date: 04/05/18 Principal diagnosis: Weakness Doing well, no complaints. Further history taking revealed that patient has been ingesting a lot of Benadryl and melatonin, she takes up to 8-10 tablets of each each night to go to sleep. Objective - Vital Signs Vital signs: Vital Signs Temp 98.6 F 04/05/18 08:00 Pulse 91 04/05/18 08:00 Resp 18 04/05/18 08:00 BP 105/67 04/05/18 08:00 Pulse Ox 95 04/05/18 08:00 Intake & Output 04/04/18 04/05/18 04/05/18 18:59 06:59 18:59 Intake Total 2320 240 Balance 2320 240 Weight 81.647 kg Intake: Oral 2320 240 Other: Voiding Method Toilet # Voids 1 2 1 # Bowel Movements 1 - Exam Constitutional: No acute distress, conversant, pleasant Eyes: icteric sclerae, moist conjunctiva, no lid-lag, PERRLA, ENMT: Oropharynx clear, no erythema, exudates Neck: Supple, FROM, no masses, or JVD, No carotid bruits, No thyromegaly Lungs: Clear to auscultation, Clear to percussion, Normal respiratory effort, no accessory muscle use Cardiovascular: Heart regular in rate and rhythm, No murmurs, gallops, or rubs, No peripheral edema Abdominal: Soft, Nontender, no guarding, rebound or rigidity, Normoactive bowel sounds, No hepatomegaly, No splenomegaly, No palpable mass Skin: Normal temperature, tone, texture, turgor, no induration, No subcutaneous nodules, No rash, lesions, No ulcers Extremities: No digital cyanosis, No clubbing, Pedal pulses intact and symmetrical, Radial pulses intact and symmetrical, No calf tenderness Psychiatric: Alert and oriented to person, place and time, appropriate affect, intact judgement Neuro: Bilateral arms fine tremors, Muscles Strength 5/5 in all 4 extremities, Sensation to light touch grossly present throughout, Cranial nerves II-XII grossly intact, no focal sensory deficits - Labs CBC & Chem 7: 04/03/18 07:05 04/04/18 07:58 Labs: Abnormal Lab Results - Last 24 Hours (Table) 04/04/18 04/04/18 04/04/18 Range/Units 07:58 12:45 17:26 POC Glucose (mg/dL) 139 H (75-99) mg/dL Tumor Marker AFP 17.2 H (0.0-7.9) ng/mL Stool Lactoferrin POSITIVE H (NEGATIVE) 04/04/18 04/05/18 Range/Units 20:48 12:03 POC Glucose (mg/dL) 106 H 129 H (75-99) mg/dL Tumor Marker AFP (0.0-7.9) ng/mL Stool Lactoferrin (NEGATIVE) Microbiology - Last 24 Hours (Table) 04/03/18 09:44 Urine Culture - Final Urine,Clean Catch Klebsiella pneumoniae 04/04/18 12:45 Stool Culture - Preliminary Stool Assessment and Plan Plan: Electrolyte abnormalities most likely secondary to chronic diarrhea/Hypokalemia Replaced Hyperbilirubinemia and elevated liver enzymes Seen by GI Ultrasound abdomen reviewed MRI reviewed--showing hepatitis Liver biopsy recommended--will be done outpatient on April 16 Tylenol, metformin and fenofibrate on hold because of liver toxicity Counselled not to take excessive amount of melatonin and benadryl. UTI Continue ceftriaxone 1 g IV daily Urine cultures growing K.pneumonia Diabetes mellitus on oral hypoglycemic agents A1c 6.7 Insulin sliding scale Hypertension Continue lisinopril low-dose DVT prophylaxis Now ambulatory D/C heparin
[2018-04-05 13:30] LABS: Anisocytosis Slight; HCT 38.8 % (34.0-46.0); HGB 12.3 gm/dL (11.4-16.0); MCH 29.9 pg (25.0-35.0); MCHC 31.8 g/dL (31.0-37.0); Macrocytosis Slight; Mean Platelet Volume 7.5; Platelet Count 167 k/uL (150-450); RBC 4.13 m/uL (3.80-5.40); RDW 18.9 % (11.5-15.5); WBC 5.8 k/uL (3.8-10.6)
[2018-04-05 13:40] LABS: Amylase 49 U/L (30-110); Anion Gap 10 mmol/L; Blood Urea Nitrogen 5 mg/dL (7-17); Calcium 8.4 mg/dL (8.4-10.2); Carbon Dioxide 26 mmol/L (22-30); Chloride 103 mmol/L (98-107); Glucose 140 mg/dL (74-99); Lipase 203 U/L (23-300); Phosphorus 2.7 mg/dL (2.5-4.5); Potassium 3.8 mmol/L (3.5-5.1); Sodium 139 mmol/L (137-145)
[2018-04-05] MEDS ORDERED: MAGNESIUM SULFATE-D5W PMX 1 GM in DEXTROSE/WATER 1 100ML.BAG IVPB SCH (14:31)
[2018-04-05] MEDS: MAGNESIUM SULFATE-D5W PMX 1 GM in DEXTROSE/WATER 1 100ML.BAG IVPB SCH ×4 (15:35→18:54)
[2018-04-05 17:20] LABS: Glucose,Whole Blood 116 mg/dL (75-99)
[2018-04-05 21:47] LABS: Glucose,Whole Blood 104 mg/dL (75-99)
[2018-04-06 07:37] LABS: Glucose,Whole Blood 106 mg/dL (75-99)
[2018-04-06] MEDS: INSULIN ASPART 100 UNIT/ML 1 ML 10 ML VIAL SQ SCH ×4 (07:59→21:16)
[2018-04-06] MEDS: DULoxetine HCL 60 MG CAPSULE.DR PO SCH (09:24)
[2018-04-06] MEDS: FAMOTIDINE 20 MG TAB PO SCH (09:24)
[2018-04-06] MEDS: GABAPENTIN 400 MG CAP PO SCH ×3 (09:25→21:34)
[2018-04-06] MEDS: LISINOPRIL 2.5 MG TAB PO SCH (09:25)
[2018-04-06] MEDS: LOPERAMIDE 2 MG CAP PO SCH (09:25)
[2018-04-06] MEDS: cefTRIAXone IN SWFI 1,000 MG/10 ML SYRINGE IVP SCH (09:30)
[2018-04-06 11:48] LABS: Glucose,Whole Blood 125 mg/dL (75-99)
--- NOTE | 2018-04-06 13:05 | P.PN ---
Subjective Progress Note Date: 04/06/18 Principal diagnosis: Weakness Patient is constipated, her last BM was 5 days ago. Still having lower abdominal cramps. Objective - Vital Signs Vital signs: Vital Signs Temp 97.8 F 04/06/18 11:33 Pulse 77 04/06/18 11:33 Resp 16 04/06/18 11:33 BP 108/69 04/06/18 11:33 Pulse Ox 92 L 04/06/18 11:33 Intake & Output 04/05/18 04/06/18 04/06/18 18:59 06:59 18:59 Intake Total 1440 Balance 1440 Intake: IV 700 Sodium Chloride 0.9% 1, 700 000 ml @ 100 mls/hr IV . Q10H SHANEKA Rx#:[id number] Oral 740 Other: # Voids 2 1 1 - Exam Constitutional: No acute distress, conversant, pleasant Eyes: icteric sclerae, moist conjunctiva, no lid-lag, PERRLA, ENMT: Oropharynx clear, no erythema, exudates Neck: Supple, FROM, no masses, or JVD, No carotid bruits, No thyromegaly Lungs: Clear to auscultation, Clear to percussion, Normal respiratory effort, no accessory muscle use Cardiovascular: Heart regular in rate and rhythm, No murmurs, gallops, or rubs, No peripheral edema Abdominal: Soft, Nontender, no guarding, rebound or rigidity, Normoactive bowel sounds, No hepatomegaly, No splenomegaly, No palpable mass Skin: Normal temperature, tone, texture, turgor, no induration, No subcutaneous nodules, No rash, lesions, No ulcers Extremities: No digital cyanosis, No clubbing, Pedal pulses intact and symmetrical, Radial pulses intact and symmetrical, No calf tenderness Psychiatric: Alert and oriented to person, place and time, appropriate affect, intact judgement Neuro: Bilateral arms fine tremors, Muscles Strength 5/5 in all 4 extremities, Sensation to light touch grossly present throughout, Cranial nerves II-XII grossly intact, no focal sensory deficits - Labs CBC & Chem 7: 04/05/18 13:10 04/05/18 13:10 Labs: Abnormal Lab Results - Last 24 Hours (Table) 04/05/18 04/05/18 04/05/18 Range/Units 13:10 13:10 17:19 RDW 18.9 H (11.5-15.5) % BUN 5 L (7-17) mg/dL Glucose 140 H (74-99) mg/dL POC Glucose (mg/dL) 116 H (75-99) mg/dL Magnesium 1.0 L* (1.6-2.3) mg/dL 04/05/18 04/06/18 04/06/18 Range/Units 21:45 07:30 11:45 RDW (11.5-15.5) % BUN (7-17) mg/dL Glucose (74-99) mg/dL POC Glucose (mg/dL) 104 H 106 H 125 H (75-99) mg/dL Magnesium (1.6-2.3) mg/dL Assessment and Plan Plan: Electrolyte abnormalities most likely secondary to chronic diarrhea including hypokalemia and hypomagnesemia Replaced Recheck Hyperbilirubinemia and elevated liver enzymes Seen by GI Ultrasound abdomen reviewed MRI reviewed--showing hepatitis Liver biopsy recommended--will be done outpatient on April 16 Tylenol, metformin and fenofibrate on hold because of liver toxicity Counselled not to take excessive amount of melatonin and benadryl. Severe constipation Likely narcotic-induced MiraLAX and docusate/senna Watching for bowel movement UTI Status post treatment with ceftriaxone Diabetes mellitus on oral hypoglycemic agents A1c 6.7 Insulin sliding scale Hypertension Continue lisinopril low-dose DVT prophylaxis Now ambulatory D/C heparin
[2018-04-06 13:14] LABS: Anion Gap 8 mmol/L; Blood Urea Nitrogen 6 mg/dL (7-17); Calcium 8.6 mg/dL (8.4-10.2); Carbon Dioxide 26 mmol/L (22-30); Chloride 103 mmol/L (98-107); Glucose 132 mg/dL (74-99); Magnesium 1.5 mg/dL (1.6-2.3); Phosphorus 2.5 mg/dL (2.5-4.5); Potassium 4.1 mmol/L (3.5-5.1); Sodium 137 mmol/L (137-145)
[2018-04-06] MEDS ORDERED: POLYETHYLENE GLYCOL 3350 17 GM POWD.PACK PO SCH (13:15)
[2018-04-06] MEDS ORDERED: SENNOSIDES-DOCUSATE SODIUM 1 EACH TAB PO SCH (13:15)
[2018-04-06] MEDS: MAGNESIUM SULFATE-D5W PMX 1 GM in DEXTROSE/WATER 1 100ML.BAG IVPB SCH ×4 (14:15→18:46)
[2018-04-06 17:06] LABS: Glucose,Whole Blood 112 mg/dL (75-99)
[2018-04-06 21:09] LABS: Glucose,Whole Blood 118 mg/dL (75-99)
[2018-04-07 07:05] LABS: Glucose,Whole Blood 93 mg/dL (75-99)
[2018-04-07 07:59] LABS: Anion Gap 7 mmol/L; Blood Urea Nitrogen 5 mg/dL (7-17); Calcium 8.8 mg/dL (8.4-10.2); Carbon Dioxide 26 mmol/L (22-30); Chloride 104 mmol/L (98-107); Glucose 99 mg/dL (74-99); Magnesium 1.8 mg/dL (1.6-2.3); Potassium 4.1 mmol/L (3.5-5.1); Sodium 137 mmol/L (137-145)
[2018-04-07] MEDS: FAMOTIDINE 20 MG TAB PO SCH (08:52)
[2018-04-07] MEDS: GABAPENTIN 400 MG CAP PO SCH (08:52)
[2018-04-07] MEDS: LISINOPRIL 2.5 MG TAB PO SCH (08:52)
[2018-04-07] MEDS: DULoxetine HCL 60 MG CAPSULE.DR PO SCH (08:52)
[2018-04-07 09:43] VITALS: BP 114/73; PULSE 84; RESP 18; TEMP 98.4
[2018-04-07] MEDS: INSULIN ASPART 100 UNIT/ML 1 ML 10 ML VIAL SQ SCH ×2 (10:09→12:16)
[2018-04-07 11:55] LABS: Glucose,Whole Blood 84 mg/dL (75-99)
--- NOTE | 2018-04-07 15:06 | P.DS ---
Providers Date of admission: 04/02/18 22:30 Expected date of discharge: 04/07/18 Attending physician: Domi Chowdhury MD Consults: 04/03/18 05:16 Consult Physician Routine Consulting Provider: Eliecer Burnett Consult Reason/Comments: chronic abd pain and diarrhea, known to doc Do you want consulting provider notified?: Yes Primary care physician: Doirna Burger Hospital Course: 68 y old female with hx of DM newly diagnosed, HLD, and ?hypertension presented to the ER because her legs were jerking and she felt weak. She fell at the pharmacy when she was picking up her prescriptions, this was not her first fall , as she was feeling weak and falling for the past couple weeks. She also reported chronic diarrhea, with all day long loose bowel movements, was on lomotil. Stools non bloody, no black stool. No chest pain , no SOB, no fevers, no chills, no nausea no vomiting. Of note she was diagnosed with UTI 2 days prior to admission and received one dose of macrobid so far, denied any dysuria , but reported smelly urine, dark urine , and frequency. Also in November she had colitis , resulting in diarrhea and abd cramps, which is chronic now since then. No diagnosis were made per her report, she had colonoscopy done 2 weeks ago and everything reported to be fine, she is still waiting on biopsy. Her liver enzymes have been elevated since october , and she follows up OP with GI. Bilirubin was also high at 5.3. Her AST was 550 on admission, ALT 162. Patient was evaluated by GI. Her hepatitis panel was negative. Alpha- fetoprotein was elevated at 17. MRI of the liver shows evidence of hepatitis. No masses were found. Liver failure and transaminitis was suspected to be secondary to excessive Tylenol use versus secondary to alcohol. Patient admitted that she was taking excessive amount of melatonin and Benadryl to sleep but he denied taking extra Tylenol. Patient magnesium was very low throughout the admission and she was given multiple doses of magnesium replacement. Also throughout the admission patient was found to have confusion and disorientation, ammonia level was found to be 53 , elevated. Throughout the admission she was complaining from abdominal pain. The admitting physician started her on morphine IV for that on an as-needed basis and I noticed that she was getting it as a scheduled every 4 hours. I discontinued the morphine and patient became significantly upset. I switched it to oxycodone at a later stage. Towards the end of admission she was significantly constipated, she was started on stool softeners and I had to discontinue the oxycodone. I told the patient that her abdominal pain was most likely secondary to constipation induced by narcotics. She was offered alternative pain control medications including NSAIDs. From GI perspective patient could go home with outpatient follow-up for liver biopsy but I did not think that patient can be safely discharged at this point. I arranged for the patient to be transferred to [facility] in order to have complete GI workup. Patient and are both agreeable to the transfer. Discharge diagnoses Liver failure, unknown etiology, could be secondary to alcohol versus Tylenol abuse Jaundice Hepatic encephalopathy Falls and weakness Diabetes type 2 Hyperlipidemia Essential hypertension Plan - Discharge Summary Discharge Rx Participant: Yes New Discharge Prescriptions: Continue Diphenox-Atrop 2.5-0.025 mg [Lomotil] 2 tab PO QID sitaGLIPtin [Januvia] 50 mg PO DAILY Lisinopril [Zestril] 2.5 mg PO DAILY Gabapentin [Neurontin] 400 mg PO TID Omeprazole 20 mg PO DAILY Discontinued Nitrofurantoin Monohyd/M-Cryst [Macrobid] 100 mg PO Q12HR Dicyclomine [Bentyl] 20 mg PO TID metFORMIN HCL 1,000 mg PO BID Acetaminophen Tab [Tylenol Tab] 1,000 mg PO Q6HR PRN PRN Reason: Pain Fenofibrate,Micronized [Fenofibrate] 134 mg PO DAILY DULoxetine HCL [Cymbalta] 120 mg PO DAILY Discharge Medication List Diphenox-Atrop 2.5-0.025 mg [Lomotil] 2 tab PO QID 04/02/18 [History] Gabapentin [Neurontin] 400 mg PO TID 04/02/18 [History] Lisinopril [Zestril] 2.5 mg PO DAILY 04/02/18 [History] Omeprazole 20 mg PO DAILY 04/02/18 [History] sitaGLIPtin [Januvia] 50 mg PO DAILY 04/02/18 [History] Follow up Appointment(s)/Referral(s): Dorina Burger MD [Primary Care Provider] - 1-2 days Shelly Amaral PAC [REFERRING] - 04/18/18 9:45 am ([facility]) Ambulatory/Diagnostic Orders: Comprehensive Metabolic Panel [LAB.AMB] Time Frame: 1 Week, Location: None Selected Prothrombin Time INR [LAB.AMB] Time Frame: 1 Week, Location: None Selected Miscellaneous Radiology Order [RAD.AMB] Location: None Selected Activity/Diet/Wound Care/Special Instructions: [facility] - [phone] - will deliver to bedside before discharge Clothes are located behind nurse station 4W Discharge Disposition: OTHER INSTITUTION NOT DEFINED
== END 2018-04-07 13:56 | disposition short-term general hospital (02) | DRG 442 ==
LOC: EC 21:32 → 3SUR 22:30 → 6PED 04-04 15:59 → 4MS4W 04-07 11:25
PROVIDERS: ADMIT Internal Medicine; ATTEND Internal Medicine
DX: K71.10 Toxic liver disease with hepatic necrosis, without coma (principal); N39.0 Urinary tract infection, site not specified; T39.1X5A Adverse effect of 4-Aminophenol derivatives, initial encounter; E03.9 Hypothyroidism, unspecified; E11.65 Type 2 diabetes mellitus with hyperglycemia; E78.5 Hyperlipidemia, unspecified; E86.0 Dehydration; E87.6 Hypokalemia; F32.9 Major depressive disorder, single episode, unspecified; G89.29 Other chronic pain; I10 Essential (primary) hypertension; K44.9 Diaphragmatic hernia without obstruction or gangrene; K59.03 Drug induced constipation; K76.0 Fatty (change of) liver, not elsewhere classified; T40.605A Adverse effect of unspecified narcotics, initial encounter; Z79.84 Long term (current) use of oral hypoglycemic drugs; Z79.899 Other long term (current) drug therapy; Z80.3 Family history of malignant neoplasm of breast; Z87.891 Personal history of nicotine dependence; K70.40 Alcoholic hepatic failure without coma; R19.7 Diarrhea, unspecified; Z91.81 History of falling; Z88.6 Allergy status to analgesic agent; Z88.1 Allergy status to other antibiotic agents; Z88.0 Allergy status to penicillin; Z88.2 Allergy status to sulfonamides
CPT/HCPCS: 74183; 76700; 80048; 80053; 80074; 81001; 82105; 82140; 82150; 83036; 83516; 83630; 83690; 83735; 83993; 84100; 85025; 85027; 85610; 86140; 87045; 87046; 87077; 87086; 87186; 87324; 87329; 99285

== ENCOUNTER 2018-05-07 13:54 | Inpatient (IN) | payer MEDICARE ==
[2018-05-07] MEDS ORDERED: SODIUM CHLORIDE 0.9% 1,000 ML IV STA ×2 (15:07)
[2018-05-07] MEDS ORDERED: ONDANSETRON 4 MG/2 ML VIAL IVP STA (15:07)
[2018-05-07] MEDS ORDERED: PANTOPRAZOLE 40 MG/10 ML VIAL IVP STA (15:07)
[2018-05-07] MEDS ORDERED: MORPHINE SULFATE 2 MG/ML SYRINGE IVP STA (15:07)
--- NOTE | 2018-05-07 15:24 | ED ---
General Adult HPI <Sebas Tate - Last Filed: 05/07/18 19:14> - General Source: patient, RN notes reviewed, old records reviewed Mode of arrival: ambulatory Limitations: no limitations <MarquisAraceli - Last Filed: 05/07/18 20:02> - General Chief complaint: Recheck/Abnormal Lab/Rx Stated complaint: liver enzymes-sent by Time Seen by Provider: 05/07/18 14:47 - History of Present Illness Initial comments: This patient's a 68-year-old female presents emergency department today with chief complaint of right upper quadrant abdominal pain, and elevated liver enzymes. Patient ports that they've been fluctuating up and down for the past few months. Her PCP called her due to abnormal blood work yesterday [facility]. Patient states that she was sent in for further evaluation. She's had vomiting episodes as well as significant diarrhea. She reports that her urine has been quite dark. She states her skin seems to be yellow and she is quite. It. Patient states that she has been evaluated by GI and they're unsure why her liver enzymes continue to fluctuate. (Araceli Cho) - Related Data Home Medications Medication Instructions Recorded Confirmed Diphenox-Atrop 2.5-0.025 mg 2 tab PO QID 04/02/18 05/07/18 [Lomotil] Gabapentin [Neurontin] 400 mg PO TID 04/02/18 05/07/18 Lisinopril [Zestril] 2.5 mg PO DAILY 04/02/18 05/07/18 Omeprazole 20 mg PO DAILY 04/02/18 05/07/18 sitaGLIPtin [Januvia] 50 mg PO DAILY 04/02/18 05/07/18 DULoxetine HCL [Cymbalta] 60 mg PO BID 05/07/18 05/07/18 Dicyclomine [Bentyl] 20 mg PO QID 05/07/18 05/07/18 Fenofibrate,Micronized 134 mg PO DAILY 05/07/18 05/07/18 [Fenofibrate] metFORMIN HCL 1,000 mg PO BID 05/07/18 05/07/18 Allergies Allergy/AdvReac Type Severity Reaction Status Date / Time NSAIDS (Non-Steroidal Allergy Severe Unknown Verified 05/07/18 15:00 Anti-Inflamma Sulfa (Sulfonamide Allergy Severe Unknown Verified 05/07/18 15:00 Antibiotics) aspirin Allergy Intermediate Unknown Verified 05/07/18 15:00 Penicillins AdvReac Severe Rash/Hives Verified 05/07/18 15:00 erythromycin base AdvReac Diarrhea Verified 05/07/18 15:00 tetracycline AdvReac Rash/Hives Verified 05/07/18 15:00 Review of Systems ROS Other: All systems not noted in ROS Statement are negative. <Sebas Tate - Last Filed: 05/07/18 19:14> ROS Other: All systems not noted in ROS Statement are negative. <Buffy Choily - Last Filed: 05/07/18 20:02> ROS Statement: Those systems with pertinent positive or pertinent negative responses have been documented in the HPI. Past Medical History Past Medical History: Diabetes Mellitus, Hyperlipidemia, Hypertension Additional Past Medical History / Comment(s): Hx of High liver enzymes History of Any Multi-Drug Resistant Organisms: None Reported Past Surgical History: Appendectomy Past Anesthesia/Blood Transfusion Reactions: No Reported Reaction Past Psychological History: Depression Smoking Status: Former smoker Past Alcohol Use History: Occasional Past Drug Use History: None Reported - Past Family History Father Family Medical History: Dementia Mother Family Medical History: Cancer Additional Family Medical History / Comment(s): Breast Cancer <Araceli Cho - Last Filed: 05/07/18 20:02> General Exam <BebetoSebas - Last Filed: 05/07/18 19:14> Limitations: no limitations General appearance: alert, in no apparent distress Head exam: Present: atraumatic, normocephalic, normal inspection Eye exam: Present: normal appearance, PERRL, EOMI, scleral icterus. Absent: conjunctival injection, periorbital swelling ENT exam: Present: normal exam, mucous membranes moist Neck exam: Present: normal inspection. Absent: tenderness, meningismus, lymphadenopathy Respiratory exam: Present: normal lung sounds bilaterally. Absent: respiratory distress, wheezes, rales, rhonchi, stridor Cardiovascular Exam: Present: regular rate, normal rhythm, normal heart sounds. Absent: systolic murmur, diastolic murmur, rubs, gallop, clicks GI/Abdominal exam: Present: tenderness ( right Upper quadrant tenderness.), normal bowel sounds. Absent: soft, distended, guarding, rebound, rigid Extremities exam: Present: normal inspection, full ROM, normal capillary refill. Absent: tenderness, pedal edema, joint swelling, calf tenderness Back exam: Present: normal inspection Neurological exam: Present: alert, oriented X3, CN II-XII intact Psychiatric exam: Present: normal affect, normal mood Skin exam: Present: warm, dry, intact. Absent: normal color (icteric), rash <Araceli Cho - Last Filed: 05/07/18 20:02> - General Exam Comments Initial Comments: 68-year-old female. Alert and oriented. No significant distress. (Araceli Cho) Course <Sebas Tate - Last Filed: 05/07/18 19:14> <Araceli Cho - Last Filed: 05/07/18 20:02> Vital Signs 05/07/18 05/07/18 05/07/18 14:28 18:44 19:46 Temperature 99.1 F Pulse Rate 93 83 80 Respiratory 18 18 17 Rate Blood Pressure 109/77 111/63 115/68 O2 Sat by Pulse 95 97 97 Oximetry - Reevaluation(s) Reevaluation #1: 05/07/18 19:14 PA supervision: I personally saw and examined the patient. I reviewed and agree with the PA findings including all diagnostic interpretations and treatment plans is written unless otherwise stated. Is discussed with Dr. Clark. (Sebas Tate) Medical Decision Making - Lab Data Result diagrams: 05/07/18 14:53 05/07/18 14:53 <Sebas Tate - Last Filed: 05/07/18 19:14> - Lab Data Result diagrams: 05/07/18 14:53 05/07/18 14:53 - Radiology Data Radiology results: report reviewed <Araceli Cho - Last Filed: 05/07/18 20:02> - Medical Decision Making 68-year-old female presents today with nausea vomiting right upper quadrant abdominal pain, sent for abnormal lab work from PCP. She's had elevated liver enzymes. Her ammonia level today is 66. She does complain of some diarrhea however he did have to give the Patient lactulose. Patient liver enzymes are elevated, 200. Total bilirubin is 4.5. This is somewhat decreased from her previous lab work in the emergency department a few months ago. At this time Patient is complaining of increasing confusion occasionally most likely related to her ammonia level. Carissa wayne Patient this time for IV fluids and consult to GI. I did complete an ultrasound of her gallbladder which was negative for any acute process at this time. (Araceli Cho) - Lab Data Lab Results 05/07/18 05/07/18 05/07/18 Range/Units 14:53 14:53 14:53 WBC 8.2 (3.8-10.6) k/uL RBC 4.25 (3.80-5.40) m/uL Hgb 13.9 (11.4-16.0) gm/dL Hct 41.6 (34.0-46.0) % MCV 98.0 (80.0-100.0) fL MCH 32.8 (25.0-35.0) pg MCHC 33.4 (31.0-37.0) g/dL RDW 15.3 (11.5-15.5) % Plt Count 251 (150-450) k/uL Neutrophils % 70 % Lymphocytes % 19 % Monocytes % 9 % Eosinophils % 0 % Basophils % 0 % Neutrophils # 5.7 (1.3-7.7) k/uL Lymphocytes # 1.5 (1.0-4.8) k/uL Monocytes # 0.7 (0-1.0) k/uL Eosinophils # 0.0 (0-0.7) k/uL Basophils # 0.0 (0-0.2) k/uL Sodium 138 (137-145) mmol/L Potassium 4.9 (3.5-5.1) mmol/L Chloride 104 (98-107) mmol/L Carbon Dioxide 25 (22-30) mmol/L Anion Gap 9 mmol/L BUN 15 (7-17) mg/dL Creatinine 0.90 (0.52-1.04) mg/dL Est GFR (CKD-EPI)AfAm 77 (>60 ml/min/1.73 sqM) Est GFR (CKD-EPI)NonAf 67 (>60 ml/min/1.73 sqM) Glucose 98 (74-99) mg/dL Calcium 9.3 (8.4-10.2) mg/dL Total Bilirubin 4.5 H (0.2-1.3) mg/dL Conjugated Bilirubin 1.4 H (0.0-0.3) mg/dL Unconjugated Bilirubin 0.8 (0.0-1.1) mg/dL Delta Bilirubin 2.3 H (0.0-0.2) mg/dL AST 259 H (14-36) U/L ALT 163 H (9-52) U/L Alkaline Phosphatase 194 H (38-126) U/L Ammonia (<30) umol/L Total Protein 7.0 (6.3-8.2) g/dL Albumin 3.8 (3.5-5.0) g/dL Amylase 57 (30-110) U/L Lipase 120 (23-300) U/L Urine Color Yellow Urine Appearance Clear (Clear) Urine pH 5.5 (5.0-8.0) Ur Specific [place] 1.014 (1.001-1.035) Urine Protein Negative (Negative) Urine Glucose (UA) Negative (Negative) Urine Ketones Negative (Negative) Urine Blood Negative (Negative) Urine Nitrite Negative (Negative) Urine Bilirubin 1+ H (Negative) Urine Urobilinogen <2.0 (<2.0) mg/dL Ur Leukocyte Esterase Negative (Negative) 05/07/18 Range/Units 14:53 WBC (3.8-10.6) k/uL RBC (3.80-5.40) m/uL Hgb (11.4-16.0) gm/dL Hct (34.0-46.0) % MCV (80.0-100.0) fL MCH (25.0-35.0) pg MCHC (31.0-37.0) g/dL RDW (11.5-15.5) % Plt Count (150-450) k/uL Neutrophils % % Lymphocytes % % Monocytes % % Eosinophils % % Basophils % % Neutrophils # (1.3-7.7) k/uL Lymphocytes # (1.0-4.8) k/uL Monocytes # (0-1.0) k/uL Eosinophils # (0-0.7) k/uL Basophils # (0-0.2) k/uL Sodium (137-145) mmol/L Potassium (3.5-5.1) mmol/L Chloride (98-107) mmol/L Carbon Dioxide (22-30) mmol/L Anion Gap mmol/L BUN (7-17) mg/dL Creatinine (0.52-1.04) mg/dL Est GFR (CKD-EPI)AfAm (>60 ml/min/1.73 sqM) Est GFR (CKD-EPI)NonAf (>60 ml/min/1.73 sqM) Glucose (74-99) mg/dL Calcium (8.4-10.2) mg/dL Total Bilirubin (0.2-1.3) mg/dL Conjugated Bilirubin (0.0-0.3) mg/dL Unconjugated Bilirubin (0.0-1.1) mg/dL Delta Bilirubin (0.0-0.2) mg/dL AST (14-36) U/L ALT (9-52) U/L Alkaline Phosphatase (38-126) U/L Ammonia 66 H (<30) umol/L Total Protein (6.3-8.2) g/dL Albumin (3.5-5.0) g/dL Amylase (30-110) U/L Lipase (23-300) U/L Urine Color Urine Appearance (Clear) Urine pH (5.0-8.0) Ur Specific [place] (1.001-1.035) Urine Protein (Negative) Urine Glucose (UA) (Negative) Urine Ketones (Negative) Urine Blood (Negative) Urine Nitrite (Negative) Urine Bilirubin (Negative) Urine Urobilinogen (<2.0) mg/dL Ur Leukocyte Esterase (Negative) 05/07/18 19:50 EKG shows normal sinus rhythm low voltage QRS. Ventricular rate of 80 bpm. OH interval is 152 ms. QRS duration 72 ms. QT QTc is 390/449 ms. (Araceli Cho ) - Radiology Data No gallstones or dilated ducts. No free fluid. No adverse changes compared old exam. Large hiatal hernia. Normal colonic bowel gas. (Araceli Cho) Disposition <Sebas Tate - Last Filed: 05/07/18 19:14> Time of Disposition: 20:02 <Araceli Cho - Last Filed: 05/07/18 20:02> Clinical Impression: Increased ammonia level, Bilirubinemia, Abdominal pain, Nausea & vomiting Disposition: ADMITTED IP TO THIS [facility] Condition: Good Instructions: Abdominal Pain (ED) Referrals: Dorina Burger MD [Primary Care Provider] - 1-2 days
--- NOTE | 2018-05-07 16:15 | XR ---
EXAMINATION TYPE: XR KUB DATE OF EXAM: 05/07/2018 COMPARISON: None INDICATION: Pain diarrhea TECHNIQUE: Single view abdomen upright view FINDINGS: There is a normal bowel gas pattern. Psoas margins are normal. No organomegaly is present. No suspicious air-fluid levels are present. No free air is present. There is a large hiatal hernia pr esent. No mass effect is evident. IMPRESSION: 1. Large hiatal hernia. 2. Normal colonic bowel gas
[2018-05-07 16:32] LABS: Appearance,Urine Clear (Clear); Basophils % (A) 0 %; Bilirubin,Urine 1+ (Negative); Blood,Urine Negative (Negative); Color,Urine Yellow; Eosinophils % (A) 0 %; Glucose,Urine (UA) Negative (Negative); HCT 41.6 % (34.0-46.0); HGB 13.9 gm/dL (11.4-16.0); Ketones,Urine Negative (Negative); Leukocyte Esterase,Urine Negative (Negative); Lymphocytes # (A) 1.5 k/uL (1.0-4.8); Lymphocytes % (A) 19 %; MCH 32.8 pg (25.0-35.0); MCHC 33.4 g/dL (31.0-37.0); Mean Platelet Volume 8.7; Monocytes # (A) 0.7 k/uL (0-1.0); Monocytes % (A) 9 %; Neutrophils # (A) 5.7 k/uL (1.3-7.7); Neutrophils % (A) 70 %; Nitrite,Urine Negative (Negative); PH, Urine 5.5 (5.0-8.0); Platelet Count 251 k/uL (150-450); Protein,Urine Negative (Negative); RBC 4.25 m/uL (3.80-5.40); RDW 15.3 % (11.5-15.5); Specific Gravity,Urine 1.014 (1.001-1.035); Urobilinogen,Urine <2.0 mg/dL (<2.0); WBC 8.2 k/uL (3.8-10.6)
[2018-05-07 16:49] LABS: Albumin 3.8 g/dL (3.5-5.0); Bilirubin, Conjugated 1.4 mg/dL (0.0-0.3); Bilirubin, Delta 2.3 mg/dL (0.0-0.2); Bilirubin,Unconjugated 0.8 mg/dL (0.0-1.1); Calcium 9.3 mg/dL (8.4-10.2); Potassium 4.9 mmol/L (3.5-5.1); Total Bilirubin 4.5 mg/dL (0.2-1.3)
[2018-05-07] MEDS ORDERED: LACTULOSE 20 GM/30 ML CUP PO ONE (17:34)
--- NOTE | 2018-05-07 18:08 | US ---
EXAMINATION TYPE: US gallbladder DATE OF EXAM: 05/07/2018 COMPARISON: 04/03/2018 CLINICAL HISTORY: Pain. Elevated liver enzymes. Exam limited due to body habitus and overlying bowel gas. EXAM MEASUREMENTS: Liver Length: 12.8 cm Gallbladder Wall: 0.30 cm CBD: 0.39 cm Right Kidney: 10.1 x 4.5 x 3.7 cm Exam limited. Pancreas: Obscured by bowel gas Liver: Heterogenous limited dues to bowel gas and rib shadowing had to scan intercoastal. Gallbladder: No stones seen Evidence for sonographic Mcleod's sign: No CBD: wnl Right Kidney: No hydronephrosis or masses seen IMPRESSION: No gallstones or dilated ducts. No free fluid. No adverse change compared to old exam.
[2018-05-07] MEDS ORDERED: KETOROLAC 30 MG/ML 1 ML VIAL IVP STA (18:33)
[2018-05-07] MEDS ORDERED: MORPHINE SULFATE 4 MG/ML SYRINGE IVP STA (18:35)
[2018-05-07] MEDS ORDERED: ACETAMINOPHEN TAB 325 MG TAB PO PRN (19:55)
[2018-05-07] MEDS ORDERED: NALOXONE 0.4 MG/ML 1 ML VIAL IV PRN (19:55)
[2018-05-07 21:12] LABS: Glucose,Whole Blood 100 mg/dL (75-99)
[2018-05-07] MEDS: metFORMIN 500 MG TAB PO SCH (22:09)
[2018-05-07] MEDS: DULoxetine HCL 60 MG CAPSULE.DR PO SCH (22:09)
[2018-05-07] MEDS: GABAPENTIN 400 MG CAP PO SCH (22:09)
[2018-05-07] MEDS: DICYCLOMINE 20 MG TAB PO SCH (22:09)
[2018-05-07] MEDS: SODIUM CHLORIDE 0.9% 1,000 ML IV SCH (22:10)
[2018-05-08] MEDS: ONDANSETRON 4 MG/2 ML VIAL IVP PRN ×2 (00:05→21:01)
[2018-05-08] MEDS: HYDROcodone/APAP 5-325MG 1 EACH TAB PO PRN ×2 (00:05→07:43)
--- NOTE | 2018-05-08 06:18 | HP ---
HISTORY AND PHYSICAL DATE OF SERVICE: 05/07/2018 CHIEF COMPLAINT: Abdominal pain. HISTORY OF PRESENT ILLNESS: This 68-year-old woman with a past medical history of diabetes, hypertension, hyperlipidemia, appendectomy, being followed by Dr. Dorina Burger in the outpatient setting is complaining of abdominal pain. The pain was felt more in the right upper quadrant upper abdominal area. Liver enzymes are elevated. The patient was taken to [facility] and admitted for evaluation and treatment. The patient also had some nausea, vomiting episode. There is no history of any fever or rigors. No history of headache, loss of consciousness, or seizures. PAST MEDICAL HISTORY: History of diabetes, hypertension, hyperlipidemia, history of depression. MEDICATIONS: Medications prior to admission include home medications are: 1. Januvia 50 mg p.o. daily. 2. Metformin 1000 mg p.o. b.i.d. 3. Omeprazole 20 mg p.o. daily. 4. Zestril 2.5 mg daily. 5. Neurontin 400 mg p.o. t.i.d. 6. Fenofibrate 134 mg p.o. daily. 7. Lomotil 2 tablets p.o. q.i.d. 8. Bentyl 20 mg p.o. q.i.d. 9. Cymbalta 60 mg p.o. b.i.d. ALLERGIES: NSAID, SULFA, ASPIRIN, PENICILLIN, ERYTHROMYCIN BASE, TETRACYCLINE. FAMILY HISTORY: History of dementia and breast cancer in the family. SOCIAL HISTORY: History of previous significant alcohol intake. Previous history of smoking. REVIEW OF SYSTEMS: ENT: No diminished hearing or diminished vision. CARDIOVASCULAR SYSTEM: No angina. RESPIRATORY SYSTEM: No cough. GI: As mentioned earlier. : No dysuria. NERVOUS SYSTEM: No numbness or weakness. ALLERGY/IMMUNOLOGY: No asthma. MUSCULOSKELETAL: As mentioned earlier. HEMATOLOGY/ONCOLOGY: No history of anemia. ENDOCRINE: No history of hypothyroidism. CONSTITUTIONAL: As mentioned earlier. DERMATOLOGY: Negative. RHEUMATOLOGY: Negative. PSYCHIATRY: As mentioned earlier. PHYSICAL EXAM: The patient is alert and oriented x3. Pulse 83, blood pressure 119/80, respirations 16, temperature 97.3, pulse ox 96% on room air. HEENT: Conjunctivae normal. Oral mucosa moist. Neck is no jugular venous distention. No carotid bruit. No lymph node enlargement. CARDIOVASCULAR: S1 and S2 muffled. No S3, no S4. RESPIRATORY: Breath sounds diminished at the bases. Few scattered rhonchi. No crackles. ABDOMEN: Soft, obese. Mild diffuse discomfort. No guarding. No rigidity. No mass palpable. LEGS: No edema, no swelling. NERVOUS SYSTEM: Higher functions as mentioned. Moves all 4 limbs. No focal motor or sensory deficits. LYMPHATICS: No lymphadenopathy of the neck, axillae or groin. SKIN: No ulcer, rash or bleeding. LABS: Labs are at this time show CBC within normal limits and glucose is 100 and total bilirubin is 4.5, conjugated is 1.4 and AST is 259, ALT is 169. Ammonia is 66. ASSESSMENT: 1. Abdominal pain, possibly hepatitis, alcoholic hepatitis. 2. History of chronic liver disease secondary to alcohol. 3. Diabetes . 4. Hypertension. 5. Hyperlipidemia. 6. Anxiety, depression. 7. History of nicotine dependence. 8. Increased ammonia. RECOMMENDATIONS AND DISCUSSION: In this 68-year-old woman who presented with multiple medical problems, will monitor the patient closely, symptomatic treatment. Will repeat labs. Otherwise, gastroenterology consultation. Other than that, I would also recommend lactulose as well and will serially follow ammonia. Prognosis guarded because of multiple complex medical issues. Further recommendations to follow. A copy of dictation forwarded to Dr. Dorina Burger who is the primary physician. See orders for details. MMODL / IJN: [id number] / MTDD
[2018-05-08] MEDS: SODIUM CHLORIDE 0.9% 1,000 ML IV SCH ×2 (06:29→15:25)
[2018-05-08] MEDS: IOPAMIDOL-300 CONTRAST 30 ML VIAL (ORAL USE) PO PRN ×2 (06:42→07:43)
[2018-05-08] MEDS ORDERED: PANTOPRAZOLE 40 MG TABLET PO SCH (07:30)
[2018-05-08 07:31] LABS: Glucose,Whole Blood 81 mg/dL (75-99)
[2018-05-08] MEDS: INSULIN ASPART 100 UNIT/ML 1 ML 10 ML VIAL SQ SCH ×4 (07:45→20:58)
[2018-05-08 08:04] LABS: INR 1.4 (<1.2); Prothrombin Time 13.2 sec (9.0-12.0)
[2018-05-08 08:11] LABS: Albumin 3.3 g/dL (3.5-5.0); Calcium 8.8 mg/dL (8.4-10.2); Potassium 4.4 mmol/L (3.5-5.1); Total Bilirubin 5.2 mg/dL (0.2-1.3); Total Protein 6.4 g/dL (6.3-8.2)
[2018-05-08] MEDS: GABAPENTIN 400 MG CAP PO SCH ×3 (08:38→21:02)
[2018-05-08] MEDS: DICYCLOMINE 20 MG TAB PO SCH ×4 (08:38→21:01)
[2018-05-08] MEDS: LINAGLIPTIN 5 MG TABLET PO SCH (08:38)
[2018-05-08] MEDS: LISINOPRIL 2.5 MG TAB PO SCH (08:38)
[2018-05-08] MEDS: FENOFIBRATE 160 MG TAB PO SCH (08:38)
[2018-05-08] MEDS: DULoxetine HCL 60 MG CAPSULE.DR PO SCH ×2 (08:38→21:01)
[2018-05-08] MEDS: metFORMIN 500 MG TAB PO SCH ×2 (08:39→18:06)
--- NOTE | 2018-05-08 08:53 | CT ---
EXAMINATION TYPE: CT abdomen pelvis wo con DATE OF EXAM: 05/08/2018 COMPARISON: 04/02/2018 HISTORY: Elevated liver enzymes CT DLP: 838.0 mGycm Examination of the solid and hollow viscera is limited given the lack of contrast. FINDINGS: LUNG BASES: No evidence for nodule. No evidence for infiltrate. There is a large fixed hiatal hernia. LIVER/GB: The gallbladder is unremarkable. No space-occupying hepatic lesion. PANCREAS: No pancreatic mass identified. No inflammatory process seen. SPLEEN: No evidence for splenomegaly. No intrasplenic lesions seen. ADRENALS: No adrenal nodules identified. No evidence for thickening. KIDNEYS: No evidence for renal mass. No nephrolithiasis. No hydronephrosis. BOWEL: Fluid distended colon. Correlate for diarrhea. No distinct wall thickening or inflammatory pro cess. Mild colonic distention noted. Small bowel is of normal caliber. No evidence for pneumoperitone um. Appendix has a normal appearance. No evidence of bowel obstruction. No inflammatory process. Lymph nodes: No evidence for adenopathy greater than 1 cm. Abdominal aorta: Atheromatous changes seen. No evidence for aneurysm. Genital organs: No significant abnormality. Other: Fat-containing umbilical hernia. Healed pelvic fractures. IMPRESSION: 1.Fluid distended colon. Correlate for diarrhea. No distinct wall thickening or inflammatory process.
[2018-05-08] MEDS: PANTOPRAZOLE 40 MG/10 ML VIAL IV SCH (10:37)
[2018-05-08 13:03] LABS: Glucose,Whole Blood 69 mg/dL (75-99)
[2018-05-08 13:03] LABS: Glucose,Whole Blood 75 mg/dL (75-99)
[2018-05-08] MEDS: MORPHINE SULFATE 4 MG/ML SYRINGE IV PRN ×2 (13:39→21:01)
[2018-05-08] MEDS ORDERED: LOPERAMIDE 2 MG CAP PO PRN (16:14)
[2018-05-08] MEDS ORDERED: LOPERAMIDE 2 MG CAP PO STA (16:17)
[2018-05-08 17:33] LABS: Glucose,Whole Blood 94 mg/dL (75-99)
[2018-05-08 20:49] LABS: Glucose,Whole Blood 131 mg/dL (75-99)
--- NOTE | 2018-05-09 00:54 | P.CONS ---
History of Present Illness - Reason for Consult Consult date: 05/08/18 Elevated Liver Enzymes Requesting physician: Lulú Clark - Chief Complaint Elevated Liver Enzymes - History of Present Illness The patient is a 68-year-old female with a significant past medical abuse who presents to the emergency department after outpatient laboratory results were significant for an elevation in her liver enzymes. The patient reports that she was hospitalized a few months ago for similar reasons. She reports at that time she was taking large amounts of Tylenol but that she has not been using any Tylenol products in the last month. The patient reports an over 30 year history of heavy alcohol use. She reports that she stopped drinking at the beginning of this year. In addition the patient reports symptoms of diarrhea. She reports multiple episodes of loose watery, nonbloody stool. She reports associated abdominal pain described as right upper quadrant abdominal pain without radiation and without associated nausea. The patient had evaluation with ultrasound and computed tomography scan of the abdomen on presentation both which were negative for any evidence of gallstones, dilated bile ducts or other obstructive or liver processes. There was noted to be a distended fluid- filled colon on computed tomography scan of the abdomen. The patient had liver enzyme tests which were significant for a total bilirubin 5.2, and alkaline phosphatase of 167, and AST of 269 and an ALP of 148. INR on presentation was 1.4. She denies any history of upper GI bleeds, ascites or encephalopathy. She does note however that she's had problems sleeping and although she is oriented she reports having episodes of confusion. Review of Systems Constitutional: Denies chills, Denies fever, Denies night sweats, Denies weight loss Cardiovascular: Denies chest pain, Denies claudication, Denies rapid heart beat , Denies shortness of breath, Denies syncope Respiratory: Denies congestion, Denies cough, Denies hemoptysis Gastrointestinal: Reports abdominal pain, Reports diarrhea, Reports jaundice, Denies constipation, Denies hematemesis, Denies hematochezia Integumentary: Denies pruritus, Denies rash Neurological: Reports confusion Past Medical History Past Medical History: Diabetes Mellitus, Hyperlipidemia, Hypertension Additional Past Medical History / Comment(s): Hx of High liver enzymes hx of ETOH History of Any Multi-Drug Resistant Organisms: None Reported Past Surgical History: Appendectomy Past Anesthesia/Blood Transfusion Reactions: No Reported Reaction Past Psychological History: Depression Smoking Status: Former smoker Past Alcohol Use History: Occasional Past Drug Use History: None Reported Additional Drug Use History / Comment(s): Pt. quit smoking in September of 2017 - Past Family History Father Family Medical History: Dementia Mother Family Medical History: Cancer Additional Family Medical History / Comment(s): Breast Cancer Medications and Allergies Home Medications Medication Instructions Recorded Confirmed Type Diphenox-Atrop 2.5-0.025 mg 2 tab PO QID 04/02/18 05/07/18 History [Lomotil] Gabapentin [Neurontin] 400 mg PO TID 04/02/18 05/07/18 History Lisinopril [Zestril] 2.5 mg PO DAILY 04/02/18 05/07/18 History Omeprazole 20 mg PO DAILY 04/02/18 05/07/18 History sitaGLIPtin [Januvia] 50 mg PO DAILY 04/02/18 05/07/18 History DULoxetine HCL [Cymbalta] 60 mg PO BID 05/07/18 05/07/18 History Dicyclomine [Bentyl] 20 mg PO QID 05/07/18 05/07/18 History Fenofibrate,Micronized 134 mg PO DAILY 05/07/18 05/07/18 History [Fenofibrate] metFORMIN HCL 1,000 mg PO BID 05/07/18 05/07/18 History Allergies Allergy/AdvReac Type Severity Reaction Status Date / Time NSAIDS (Non-Steroidal Allergy Severe Unknown Verified 05/07/18 15:00 Anti-Inflamma Sulfa (Sulfonamide Allergy Severe Unknown Verified 05/07/18 15:00 Antibiotics) aspirin Allergy Intermediate Unknown Verified 05/07/18 15:00 Penicillins AdvReac Severe Rash/Hives Verified 05/07/18 15:00 erythromycin base AdvReac Diarrhea Verified 05/07/18 15:00 tetracycline AdvReac Rash/Hives Verified 05/07/18 15:00 Physical Exam Vitals: Vital Signs Temp Pulse Resp BP Pulse Ox 05/08/18 23:00 97.8 F 77 16 95/55 93 L 05/08/18 14:29 96.9 F L 82 16 94/62 96 05/08/18 08:00 114/67 05/08/18 05:35 97.0 F L 69 16 91/52 94 L Intake and Output 05/08/18 05/08/1818 14:59 22:59 06:59 Other: # Voids 4 1 # Bowel Movements 2 1 - Constitutional General appearance: cooperative, no acute distress - EENT Eyes: EOMI, scleral icterus - Respiratory Respiratory: bilateral: CTA, negative: rhonchi, wheezing - Cardiovascular Rhythm: regular Heart sounds: normal: S1, S2 - Gastrointestinal General gastrointestinal: no distended, normal bowel sounds, no organomegaly, tenderness Localized gastrointestinal: tender: epigastric periumbilical - Integumentary Integumentary: jaundiced - Neurologic No asterixis noted on physical exam - Psychiatric Psychiatric: A&O x's 3, appropriate affect Results CBC & Chem 7: 05/07/18 14:53 05/08/18 07:31 Labs: Abnormal Lab Results - Last 24 Hours (Table) 05/08/18 05/08/18 05/08/18 Range/Units 07:31 07:31 07:31 PT 13.2 H (9.0-12.0) sec INR 1.4 H (<1.2) Carbon Dioxide 20 L (22-30) mmol/L POC Glucose (mg/dL) (75-99) mg/dL Total Bilirubin 5.2 H (0.2-1.3) mg/dL AST 269 H (14-36) U/L ALT 148 H (9-52) U/L Alkaline Phosphatase 167 H (38-126) U/L Ammonia 67 H (<30) umol/L Albumin 3.3 L (3.5-5.0) g/dL 05/08/18 05/08/18 Range/Units 12:23 20:43 PT (9.0-12.0) sec INR (<1.2) Carbon Dioxide (22-30) mmol/L POC Glucose (mg/dL) 69 L 131 H (75-99) mg/dL Total Bilirubin (0.2-1.3) mg/dL AST (14-36) U/L ALT (9-52) U/L Alkaline Phosphatase (38-126) U/L Ammonia (<30) umol/L Albumin (3.5-5.0) g/dL CT scan - abdomen: report reviewed US - abdomen: report reviewed Assessment and Plan (1) Bilirubinemia Narrative/Plan: Elevation in the patient's liver enzymes in both a cholestatic and hepatocellular picture. This is consistent with all of her disease although the patient does not have evidence of cirrhosis on imaging elevations in her bilirubin and INR do suggest some compromise in hepatic function. However a full serology will be ordered to rule out other underlying liver pathology. No evidence of obstruction of the bile ducts on ultrasound and CT with no gallstones noted and normal CBD size. Current Visit: Yes Status: Acute Code(s): E80.6 - OTHER DISORDERS OF BILIRUBIN METABOLISM SNOMED Code(s): 85696467 (2) Abdominal pain Narrative/Plan: Nonspecific with unclear etiology. Related to gastritis, peptic ulcer disease, a functional disorder or other etiology. Current Visit: Yes Status: Acute Code(s): R10.9 - UNSPECIFIED ABDOMINAL PAIN SNOMED Code(s): 05900265 (3) Increased ammonia level Narrative/Plan: Mildly increased ammonia level, no evidence of asterixis on physical exam suggests hepatic encephalopathy. In addition no findings on imaging to suggest a cirrhotic liver. However the patient's labs are suggestive of underlying alcoholic liver disease and given her long history of alcohol abuse some cognitive impairment maybe secondary to the toxic nature of the alcohol itself. Current Visit: Yes Status: Acute Code(s): R79.89 - OTHER SPECIFIED ABNORMAL FINDINGS OF BLOOD CHEMISTRY SNOMED Code(s): 507573246 (4) Nausea & vomiting Narrative/Plan: Likely secondary to above. Current Visit: Yes Status: Acute Code(s): R11.2 - NAUSEA WITH VOMITING, UNSPECIFIED SNOMED Code(s): 17949528 (5) Elevated liver enzymes Narrative/Plan: Both hepatocellular and cholestatic as mentioned above, we'll investigate further. Current Visit: No Status: Acute Code(s): R74.8 - ABNORMAL LEVELS OF OTHER SERUM ENZYMES SNOMED Code(s): 290280695 (6) Jaundice Narrative/Plan: Secondary to hyperbilirubinemia. Current Visit: No Status: Acute Code(s): R17 - UNSPECIFIED JAUNDICE SNOMED Code(s): 66409135 Plan: 1. Continue to monitor. 2. We'll check labs including INR and liver enzymes daily. 3. We'll check full liver serologies for underlying liver disease. 4. Unclear if confusion is secondary to long-standing alcohol use or hyperammonemia with only a mild elevation of the ammonia on labs. However given the patient's diarrhea will start Xifaxan. If diarrhea resolves and consider lactulose with titration to 2-3 bowel movements daily. 5. Stool studies ordered. 6. Continue alcohol abstinence, monitor for symptoms of withdrawal. 7. Thank you for allowing us to participate in the care of this patient will continue to follow.
[2018-05-09] MEDS: SODIUM CHLORIDE 0.9% 1,000 ML IV SCH ×3 (01:28→22:58)
[2018-05-09] MEDS: ONDANSETRON 4 MG/2 ML VIAL IVP PRN ×2 (06:00→13:01)
[2018-05-09] MEDS: INSULIN ASPART 100 UNIT/ML 1 ML 10 ML VIAL SQ SCH ×4 (07:36→21:25)
[2018-05-09 07:39] LABS: Glucose,Whole Blood 86 mg/dL (75-99)
[2018-05-09] MEDS: LINAGLIPTIN 5 MG TABLET PO SCH (08:01)
[2018-05-09] MEDS: GABAPENTIN 400 MG CAP PO SCH ×3 (08:01→21:26)
[2018-05-09] MEDS: metFORMIN 500 MG TAB PO SCH ×2 (08:01→17:07)
[2018-05-09] MEDS: FENOFIBRATE 160 MG TAB PO SCH (08:01)
[2018-05-09] MEDS: DICYCLOMINE 20 MG TAB PO SCH ×5 (08:01→21:27)
[2018-05-09] MEDS: RIFAXIMIN 550 MG TABLET PO SCH ×2 (08:01→21:25)
[2018-05-09] MEDS: DULoxetine HCL 60 MG CAPSULE.DR PO SCH ×2 (08:02→21:25)
[2018-05-09] MEDS: PANTOPRAZOLE 40 MG/10 ML VIAL IV SCH (08:02)
[2018-05-09] MEDS: LISINOPRIL 2.5 MG TAB PO SCH (08:02)
[2018-05-09] MEDS: MORPHINE SULFATE 4 MG/ML SYRINGE IV PRN (08:07)
[2018-05-09 09:03] LABS: Basophils % (A) 0 %; Eosinophils % (A) 0 %; HCT 39.4 % (34.0-46.0); HGB 12.7 gm/dL (11.4-16.0); Lymphocytes # (A) 1.4 k/uL (1.0-4.8); Lymphocytes % (A) 29 %; MCH 32.8 pg (25.0-35.0); MCHC 32.3 g/dL (31.0-37.0); MCV 101.3 fL (80.0-100.0); Macrocytosis Slight; Mean Platelet Volume 7.4; Monocytes # (A) 0.2 k/uL (0-1.0); Monocytes % (A) 4 %; Neutrophils # (A) 3.1 k/uL (1.3-7.7); Neutrophils % (A) 64 %; Platelet Count 181 k/uL (150-450); RBC 3.89 m/uL (3.80-5.40); RDW 15.2 % (11.5-15.5); WBC 4.9 k/uL (3.8-10.6)
[2018-05-09 09:07] LABS: INR 1.4 (<1.2)
[2018-05-09 09:23] LABS: ALT 134 U/L (9-52); AST 221 U/L (14-36); Albumin 3.1 g/dL (3.5-5.0); Alkaline Phosphatase 146 U/L (38-126); Anion Gap 8 mmol/L; Blood Urea Nitrogen 9 mg/dL (7-17); Calcium 8.8 mg/dL (8.4-10.2); Carbon Dioxide 22 mmol/L (22-30); Chloride 108 mmol/L (98-107); Glucose 139 mg/dL (74-99); Potassium 4.1 mmol/L (3.5-5.1); Sodium 138 mmol/L (137-145); Total Bilirubin 4.8 mg/dL (0.2-1.3)
[2018-05-09 09:39] LABS: Magnesium 0.9 mg/dL (1.6-2.3)
[2018-05-09] MEDS ORDERED: Magnesium Replacement Protocol 1 EACH MISC MISCELLANE PRN (09:53)
[2018-05-09] MEDS: MAGNESIUM SULFATE-D5W PMX 1 GM in DEXTROSE/WATER 1 100ML.BAG IVPB SCH ×4 (11:00→14:15)
[2018-05-09] MEDS: HYDROcodone/APAP 5-325MG 1 EACH TAB PO PRN ×2 (11:00→21:27)
--- NOTE | 2018-05-09 11:28 | XR ---
EXAMINATION TYPE: XR chest 1V portable DATE OF EXAM: 05/09/2018 COMPARISON: NONE HISTORY: Shortness of breath. Congestive heart failure. TECHNIQUE: Single frontal view of the chest is obtained. FINDINGS: There is no focal air space opacity, pleural effusion, or pneumothorax seen. The cardiac silhouette size is upper limits of normal. The osseous structures are intact. Partial intrathoracic stomach is incidentally noted. IMPRESSION: No acute cardiopulmonary process although partial intrathoracic stomach is incidentally noted.
[2018-05-09 12:54] LABS: Glucose,Whole Blood 84 mg/dL (75-99)
[2018-05-09] MEDS: IBUPROFEN 400 MG TAB PO PRN (13:01)
[2018-05-09 16:05] LABS: Iron Saturation 60.71 (12.00-45.00)
[2018-05-09 17:13] LABS: Glucose,Whole Blood 74 mg/dL (75-99)
--- NOTE | 2018-05-09 18:15 | P.PN ---
Subjective Progress Note Date: 05/08/18 Progress note being dictated for Dr. Menjivar. Interval history: This is a 68-year-old female admitted with abdominal pain, possibly hepatitis in a patient with history of chronic liver disease secondary to alcohol and multiple other medical issues. Multiple episodes of diarrhea today, ruling out C. difficile colitis. Complains of mild diffuse abdominal cramping. LFTs remain minimally unchanged, ammonia 67. Maintained on IV fluids. CT of abdomen and pelvis reporting fluid distended colon, diarrhea. GI consult in place with recommendations pending. INR 1.4. Objective - Vital Signs Vital signs: Vital Signs Temp 96.9 F L 05/08/18 14:29 Pulse 82 05/08/18 14:29 Resp 16 05/08/18 14:29 BP 94/62 05/08/18 14:29 Pulse Ox 96 05/08/18 14:29 Intake & Output 05/07/18 05/08/18 05/08/18 18:59 06:59 18:59 Intake Total 1599 Balance 1599 Weight 83.007 kg Intake: Intake, IV Titration 1599 Amount Sodium Chloride 0.9% 1, 600 000 ml @ 100 mls/hr IV . Q10H STA Rx#:[id number] Sodium Chloride 0.9% 1, 999 000 ml @ 999 mls/hr IV . Q1H1M STA Rx#:[id number] Other: # Voids 2 4 # Bowel Movements 2 2 - Exam PHYSICAL EXAM: VITAL SIGNS: As above GENERAL: Sitting up in chair, no acute distress HEENT: Conjunctivae normal. eyes normal. Oral mucosa moist NECK: No JVD. No thyroid enlargement. No LNs CARDIOVASCULAR: S1, S2 muffled. No murmur RESPIRATION: Breath sounds diminished in the bases. Occasional rhonchi. no crackles. ABDOMEN: Soft, mild diffuse discomfort. No guarding. no masses palpable. Bowel sounds heard. LEGS: No edema. no swelling PSYCHIATRY: Alert and oriented -3, mood and affect normal. NERVOUS SYSTEM: Cranial N 2-12 grossly normal. Moves all 4 limbs. Diffuse weakness No focal deficits. Skin: no ulcer no rash Lymphatic system. No LN neck axilla or groin. - Labs CBC & Chem 7: 05/09/18 08:42 05/09/18 08:42 Labs: Abnormal Lab Results - Last 24 Hours (Table) 05/07/18 05/07/18 05/07/18 Range/Units 14:53 14:53 14:53 PT (9.0-12.0) sec INR (<1.2) Carbon Dioxide (22-30) mmol/L POC Glucose (mg/dL) (75-99) mg/dL Total Bilirubin 4.5 H (0.2-1.3) mg/dL Conjugated Bilirubin 1.4 H (0.0-0.3) mg/dL Delta Bilirubin 2.3 H (0.0-0.2) mg/dL AST 259 H (14-36) U/L ALT 163 H (9-52) U/L Alkaline Phosphatase 194 H (38-126) U/L Ammonia 66 H (<30) umol/L Albumin (3.5-5.0) g/dL Urine Bilirubin 1+ H (Negative) 05/07/18 05/08/18 05/08/18 Range/Units 21:10 07:31 07:31 PT 13.2 H (9.0-12.0) sec INR 1.4 H (<1.2) Carbon Dioxide 20 L (22-30) mmol/L POC Glucose (mg/dL) 100 H (75-99) mg/dL Total Bilirubin 5.2 H (0.2-1.3) mg/dL Conjugated Bilirubin (0.0-0.3) mg/dL Delta Bilirubin (0.0-0.2) mg/dL AST 269 H (14-36) U/L ALT 148 H (9-52) U/L Alkaline Phosphatase 167 H (38-126) U/L Ammonia (<30) umol/L Albumin 3.3 L (3.5-5.0) g/dL Urine Bilirubin (Negative) 05/08/18 05/08/18 Range/Units 07:31 12:23 PT (9.0-12.0) sec INR (<1.2) Carbon Dioxide (22-30) mmol/L POC Glucose (mg/dL) 69 L (75-99) mg/dL Total Bilirubin (0.2-1.3) mg/dL Conjugated Bilirubin (0.0-0.3) mg/dL Delta Bilirubin (0.0-0.2) mg/dL AST (14-36) U/L ALT (9-52) U/L Alkaline Phosphatase (38-126) U/L Ammonia 67 H (<30) umol/L Albumin (3.5-5.0) g/dL Urine Bilirubin (Negative) Assessment and Plan Assessment: 1. Abdominal pain, possible hepatitis, alcoholic hepatitis in a patient with history of chronic liver disease secondary to alcohol 2. Diarrhea, ruling out C. difficile colitis 3. Diabetes mellitus 4. Hypertension 5. Elevated ammonia 6. Coagulopathy, secondary to chronic liver disease 7. History of nicotine dependence Plan: Continue on current medication regime ,monitoring and symptomatic treatment. Gentle IV fluid hydration, PPI. Close monitoring of LFTs, ammonia with repeat labs ordered for a.m. GI consult in place with recommendations pending. The impression and plan of care has been dictated as directed. : I performed a history and examination of this patient, discussed the same with the dictator. I agree with the dictator's note ,documented as a scribe. Any additional findings or plans will be noted.
--- NOTE | 2018-05-09 18:24 | P.PN ---
Subjective Progress Note Date: 05/09/18 Progress note being dictated for Dr. Menjivar. Interval history: This is a 68-year-old female admitted with abdominal pain, possibly hepatitis in a patient with history of chronic liver disease secondary to alcohol and multiple other medical issues. Multiple episodes of diarrhea today, ruling out C. difficile colitis. Complains of mild diffuse abdominal cramping. LFTs remain minimally unchanged, ammonia 67. Maintained on IV fluids. CT of abdomen and pelvis reporting fluid distended colon, diarrhea. GI consult in place with recommendations pending. INR 1.4. 05/09/2018 evaluated by GI with recommendations noted. Diarrhea improving. Maintained on Xifaxan. Magnesium 0.9, receiving supplements., LFTs elevated- slowly improving, T bili down to 4.8. Mild hypotension, maintained on IV fluids. Chest x-ray reporting no acute process , incidental finding of partial intrathoracic stomach. Evaluated by GI with recommendations noted. Objective - Vital Signs Vital signs: Vital Signs Temp 98.2 F 05/09/18 14:40 Pulse 68 05/09/18 14:40 Resp 16 05/09/18 15:07 BP 82/53 05/09/18 14:40 Pulse Ox 90 L 05/09/18 14:40 Intake & Output 05/08/18 05/09/18 05/09/18 18:59 06:59 18:59 Intake Total 520 Balance 520 Intake: Oral 520 Other: # Voids 2 2 3 # Bowel Movements 2 2 - Exam PHYSICAL EXAM: VITAL SIGNS: As above GENERAL: Sitting up in chair, no acute distress. HEENT: Conjunctivae normal. eyes normal. Oral mucosa moist NECK: No JVD. No thyroid enlargement. No LNs CARDIOVASCULAR: S1, S2 muffled. No murmur RESPIRATION: Breath sounds diminished in the bases. Occasional rhonchi. no crackles. ABDOMEN: Soft, mild diffuse discomfort. No guarding. no masses palpable. Bowel sounds heard. LEGS: No edema. no swelling PSYCHIATRY: Alert and oriented -3, mood and affect normal. NERVOUS SYSTEM: Cranial N 2-12 grossly normal. Moves all 4 limbs. Diffuse weakness No focal deficits. Skin: no ulcer no rash Lymphatic system. No LN neck axilla or groin. - Labs CBC & Chem 7: 05/09/18 08:42 05/09/18 08:42 Labs: Abnormal Lab Results - Last 24 Hours (Table) 05/08/18 05/09/18 05/09/18 Range/Units 20:43 08:42 08:42 MCV 101.3 H (80.0-100.0) fL PT (9.0-12.0) sec INR (<1.2) Chloride 108 H (98-107) mmol/L Glucose 139 H (74-99) mg/dL POC Glucose (mg/dL) 131 H (75-99) mg/dL Magnesium 0.9 L* (1.6-2.3) mg/dL Iron (50-170) ug/dL Iron Saturation (12.00-45.00) Total Bilirubin 4.8 H (0.2-1.3) mg/dL AST 221 H (14-36) U/L ALT 134 H (9-52) U/L Alkaline Phosphatase 146 H (38-126) U/L Ammonia (<30) umol/L Total Protein 6.0 L (6.3-8.2) g/dL Albumin 3.1 L (3.5-5.0) g/dL 05/09/18 05/09/18 05/09/18 Range/Units 08:42 08:42 08:42 MCV (80.0-100.0) fL PT 13.0 H (9.0-12.0) sec INR 1.4 H (<1.2) Chloride (98-107) mmol/L Glucose (74-99) mg/dL POC Glucose (mg/dL) (75-99) mg/dL Magnesium (1.6-2.3) mg/dL Iron 221 H (50-170) ug/dL Iron Saturation 60.71 H (12.00-45.00) Total Bilirubin (0.2-1.3) mg/dL AST (14-36) U/L ALT (9-52) U/L Alkaline Phosphatase (38-126) U/L Ammonia 59 H (<30) umol/L Total Protein (6.3-8.2) g/dL Albumin (3.5-5.0) g/dL 05/09/18 Range/Units 17:06 MCV (80.0-100.0) fL PT (9.0-12.0) sec INR (<1.2) Chloride (98-107) mmol/L Glucose (74-99) mg/dL POC Glucose (mg/dL) 74 L (75-99) mg/dL Magnesium (1.6-2.3) mg/dL Iron (50-170) ug/dL Iron Saturation (12.00-45.00) Total Bilirubin (0.2-1.3) mg/dL AST (14-36) U/L ALT (9-52) U/L Alkaline Phosphatase (38-126) U/L Ammonia (<30) umol/L Total Protein (6.3-8.2) g/dL Albumin (3.5-5.0) g/dL Assessment and Plan Assessment: 1. Abdominal pain, possible hepatitis, alcoholic hepatitis in a patient with history of chronic liver disease secondary to alcohol 2. Diarrhea, ruling out C. difficile colitis 3. Diabetes mellitus 4. Hypertension 5. Elevated ammonia 6. Coagulopathy, secondary to chronic liver disease 7. History of nicotine dependence Plan: Continue on current medication regime ,monitoring and symptomatic treatment. Increase IV fluid hydration, PPI. Close monitoring of LFTs, ammonia with repeat labs ordered for a.m.. Further recommendations to follow. Discharge planning in a.m. pending improvement in diarrhea. The impression and plan of care has been dictated as directed. : I performed a history and examination of this patient, discussed the same with the dictator. I agree with the dictator's note ,documented as a scribe. Any additional findings or plans will be noted.
[2018-05-09] MEDS ORDERED: Potassium Replacement Protocol 1 EACH MISC MISCELLANE PRN (18:25)
--- NOTE | 2018-05-09 20:31 | P.PN ---
Subjective Progress Note Date: 05/09/18 Principal diagnosis: Elevated liver function tests, diarrhea Patient reports feeling much better today. Feels that she is less jaundiced. Able to tolerate diet. No complaints of abdominal pain. No reports of confusion. Objective - Vital Signs Vital signs: Vital Signs Temp 98.2 F 05/09/18 14:40 Pulse 68 05/09/18 14:40 Resp 16 05/09/18 15:07 BP 82/53 05/09/18 14:40 Pulse Ox 90 L 05/09/18 14:40 Intake & Output 05/09/18 05/09/18 05/10/18 06:59 18:59 06:59 Intake Total 520 Balance 520 Intake: Oral 520 Other: # Voids 2 3 # Bowel Movements 2 - Exam On physical examination, patient appears comfortable in no apparent distress. HEENT: Unremarkable. Conjunctivae pink. Sclerae anicteric, improved from previous exam. Oral cavity no lesions. NECK: No JVD or lymph node enlargement. CHEST: Clear to auscultation. HEART: Regular rate and rhythm. ABDOMEN: Soft. Bowel sounds are positive. No organomegaly. EXTREMITIES: No pedal edema. SKIN: No rashes. NEUROLOGIC: Alert and oriented x3. No focal deficits. No asterixis. - Labs CBC & Chem 7: 05/09/18 08:42 05/09/18 08:42 Labs: Abnormal Lab Results - Last 24 Hours (Table) 05/08/18 05/09/18 05/09/18 Range/Units 20:43 08:42 08:42 MCV 101.3 H (80.0-100.0) fL PT (9.0-12.0) sec INR (<1.2) Chloride 108 H (98-107) mmol/L Glucose 139 H (74-99) mg/dL POC Glucose (mg/dL) 131 H (75-99) mg/dL Magnesium 0.9 L* (1.6-2.3) mg/dL Iron (50-170) ug/dL Iron Saturation (12.00-45.00) Total Bilirubin 4.8 H (0.2-1.3) mg/dL AST 221 H (14-36) U/L ALT 134 H (9-52) U/L Alkaline Phosphatase 146 H (38-126) U/L Ammonia (<30) umol/L Total Protein 6.0 L (6.3-8.2) g/dL Albumin 3.1 L (3.5-5.0) g/dL 18 18 05/09/18 Range/Units 08:42 08:42 08:42 MCV (80.0-100.0) fL PT 13.0 H (9.0-12.0) sec INR 1.4 H (<1.2) Chloride (98-107) mmol/L Glucose (74-99) mg/dL POC Glucose (mg/dL) (75-99) mg/dL Magnesium (1.6-2.3) mg/dL Iron 221 H (50-170) ug/dL Iron Saturation 60.71 H (12.00-45.00) Total Bilirubin (0.2-1.3) mg/dL AST (14-36) U/L ALT (9-52) U/L Alkaline Phosphatase (38-126) U/L Ammonia 59 H (<30) umol/L Total Protein (6.3-8.2) g/dL Albumin (3.5-5.0) g/dL 05/09/18 Range/Units 17:06 MCV (80.0-100.0) fL PT (9.0-12.0) sec INR (<1.2) Chloride (98-107) mmol/L Glucose (74-99) mg/dL POC Glucose (mg/dL) 74 L (75-99) mg/dL Magnesium (1.6-2.3) mg/dL Iron (50-170) ug/dL Iron Saturation (12.00-45.00) Total Bilirubin (0.2-1.3) mg/dL AST (14-36) U/L ALT (9-52) U/L Alkaline Phosphatase (38-126) U/L Ammonia (<30) umol/L Total Protein (6.3-8.2) g/dL Albumin (3.5-5.0) g/dL Assessment and Plan (1) Bilirubinemia Narrative/Plan: Elevation in the patient's liver enzymes in both a cholestatic and hepatocellular picture. This is consistent with all of her disease although the patient does not have evidence of cirrhosis on imaging elevations in her bilirubin and INR do suggest some compromise in hepatic function. However a full serology will be ordered to rule out other underlying liver pathology. No evidence of obstruction of the bile ducts on ultrasound and CT with no gallstones noted and normal CBD size. Bilirubin has improved to 4.8 from 5.2 previously with improvement in other liver enzymes as well. As mentioned given likely chronicity of liver disease it is unlikely that they will return to normal. Current Visit: Yes Status: Acute Code(s): E80.6 - OTHER DISORDERS OF BILIRUBIN METABOLISM SNOMED Code(s): 22473242 (2) Abdominal pain Narrative/Plan: Nonspecific with unclear etiology. Related to gastritis, peptic ulcer disease, a functional disorder or other etiology. Currently improved. Current Visit: Yes Status: Acute Code(s): R10.9 - UNSPECIFIED ABDOMINAL PAIN SNOMED Code(s): 02460109 (3) Increased ammonia level Narrative/Plan: Mildly increased ammonia level, no evidence of asterixis on physical exam suggests hepatic encephalopathy. In addition no findings on imaging to suggest a cirrhotic liver. However the patient's labs are suggestive of underlying alcoholic liver disease and given her long history of alcohol abuse some cognitive impairment maybe secondary to the toxic nature of the alcohol itself. Current Visit: Yes Status: Acute Code(s): R79.89 - OTHER SPECIFIED ABNORMAL FINDINGS OF BLOOD CHEMISTRY SNOMED Code(s): 644224253 (4) Nausea & vomiting Narrative/Plan: Likely secondary to above. Current Visit: Yes Status: Acute Code(s): R11.2 - NAUSEA WITH VOMITING, UNSPECIFIED SNOMED Code(s): 98626969 (5) Elevated liver enzymes Narrative/Plan: Both hepatocellular and cholestatic as mentioned above, we'll investigate further. Improved today. Current Visit: No Status: Acute Code(s): R74.8 - ABNORMAL LEVELS OF OTHER SERUM ENZYMES SNOMED Code(s): 906423269 (6) Jaundice Narrative/Plan: Secondary to hyperbilirubinemia. Improved. Current Visit: No Status: Acute Code(s): R17 - UNSPECIFIED JAUNDICE SNOMED Code(s): 17240949 Plan: 1. Continue to monitor. 2. We'll check labs including INR and liver enzymes daily. 3. We'll check full liver serologies for underlying liver disease. Still pending. Elevated iron likely secondary to alcoholic liver disease. 4. Unclear if confusion is secondary to long-standing alcohol use or hyperammonemia with only a mild elevation of the ammonia on labs. However given the patient's diarrhea will start Xifaxan. If diarrhea resolves we can restart lactulose with titration to 2-3 bowel movements daily. 5. Stool studies ordered. 6. Continue alcohol abstinence, monitor for symptoms of withdrawal. 7. Thank you for allowing us to participate in the care of this patient will continue to follow.
[2018-05-09 20:49] LABS: Glucose,Whole Blood 141 mg/dL (75-99)
[2018-05-10 07:08] LABS: Glucose,Whole Blood 72 mg/dL (75-99)
[2018-05-10] MEDS: SODIUM CHLORIDE 0.9% 1,000 ML IV SCH ×2 (07:57→11:12)
[2018-05-10] MEDS: INSULIN ASPART 100 UNIT/ML 1 ML 10 ML VIAL SQ SCH ×4 (07:57→20:48)
[2018-05-10] MEDS: metFORMIN 500 MG TAB PO SCH ×2 (07:59→16:27)
[2018-05-10 08:36] LABS: INR 1.4 (<1.2); Prothrombin Time 12.9 sec (9.0-12.0)
[2018-05-10 08:49] LABS: ALT 99 U/L (9-52); AST 142 U/L (14-36); Albumin 2.7 g/dL (3.5-5.0); Alkaline Phosphatase 123 U/L (38-126); Anion Gap 9 mmol/L; Blood Urea Nitrogen 7 mg/dL (7-17); Calcium 8.4 mg/dL (8.4-10.2); Carbon Dioxide 17 mmol/L (22-30); Chloride 115 mmol/L (98-107); Glucose 77 mg/dL (74-99); Magnesium 1.5 mg/dL (1.6-2.3); Potassium 4.2 mmol/L (3.5-5.1); Sodium 141 mmol/L (137-145); Total Bilirubin 4.1 mg/dL (0.2-1.3); Total Protein 5.5 g/dL (6.3-8.2)
[2018-05-10 09:07] LABS: Basophils % (A) 0 %; Eosinophils % (A) 0 %; HCT 35.5 % (34.0-46.0); HGB 11.6 gm/dL (11.4-16.0); Lymphocytes # (A) 1.2 k/uL (1.0-4.8); Lymphocytes % (A) 27 %; MCH 32.8 pg (25.0-35.0); MCHC 32.7 g/dL (31.0-37.0); MCV 100.2 fL (80.0-100.0); Macrocytosis Slight; Mean Platelet Volume 7.3; Monocytes # (A) 0.3 k/uL (0-1.0); Monocytes % (A) 7 %; Neutrophils # (A) 2.8 k/uL (1.3-7.7); Neutrophils % (A) 64 %; Platelet Count 191 k/uL (150-450); RBC 3.54 m/uL (3.80-5.40); RDW 15.2 % (11.5-15.5); WBC 4.4 k/uL (3.8-10.6)
[2018-05-10] MEDS: PANTOPRAZOLE 40 MG/10 ML VIAL IV SCH (09:12)
[2018-05-10] MEDS: ONDANSETRON 4 MG/2 ML VIAL IVP PRN ×2 (09:12→16:35)
[2018-05-10] MEDS: RIFAXIMIN 550 MG TABLET PO SCH ×2 (09:13→21:09)
[2018-05-10] MEDS: GABAPENTIN 400 MG CAP PO SCH ×3 (09:13→21:10)
[2018-05-10] MEDS: LINAGLIPTIN 5 MG TABLET PO SCH (09:13)
[2018-05-10] MEDS: FENOFIBRATE 160 MG TAB PO SCH (09:13)
[2018-05-10] MEDS: MORPHINE SULFATE 4 MG/ML SYRINGE IV PRN ×2 (09:13→16:30)
[2018-05-10] MEDS: LISINOPRIL 2.5 MG TAB PO SCH ×2 (09:13→09:15)
[2018-05-10] MEDS: DULoxetine HCL 60 MG CAPSULE.DR PO SCH ×2 (09:13→21:09)
[2018-05-10] MEDS ORDERED: Magnesium Replacement Protocol 1 EACH MISC MISCELLANE PRN (09:55)
[2018-05-10 10:38] LABS: IgG Subclass 4 9.6 mg/dL (3.0-175.0)
[2018-05-10 11:10] LABS: IgG Subclass 3 57.1 mg/dL (11.0-85.0)
[2018-05-10] MEDS: MAGNESIUM SULFATE-D5W PMX 1 GM in DEXTROSE/WATER 1 100ML.BAG IVPB SCH ×2 (11:11→12:47)
[2018-05-10 11:47] LABS: Glucose,Whole Blood 107 mg/dL (75-99)
[2018-05-10 12:01] LABS: Ceruloplasmin 31.2 mg/dL (20.0-60.0)
[2018-05-10] MEDS: DICYCLOMINE 20 MG TAB PO SCH ×3 (12:47→21:10)
--- NOTE | 2018-05-10 15:10 | P.PN ---
Subjective Progress Note Date: 05/10/18 The patient is a 68-year-old female who is admitted to the hospital because of abdominal pains and abnormal liver enzymes. She was transferred from [facility] last month for similar problems. At that time AST 550 ALT 162 alkaline phosphatase 245 total bilirubin 5.9. She has a history of remote alcohol abuse and she stopped in September of this year. Ultrasound showed hepatic steatosis. CT of the abdomen showed a large hiatal hernia but the liver , spleen, gallbladder were normal with no dilated bile ducts or ascites. The patient was taking Tylenol frequently and was on metformin. She has received Macrobid as outpatient at that time for urinary tract infection. I performed a colonoscopy in February for screening and the preparation was less than ideal but there was no obvious abnormalities. Today, she feels somewhat improved. No significant abdominal pains, nausea, vomiting or fever. Her liver enzymes show AST 142 ALT 99 alkaline phosphatase 123 which is normal and total bilirubin 4.1. It is apparent that her liver enzymes have been coming down gradually since the highest levels April 03. Objective - Vital Signs Vital signs: Vital Signs Temp 97.5 F L 05/10/18 05:30 Pulse 75 05/10/18 05:30 Resp 14 05/10/18 05:30 BP 99/57 05/10/18 05:30 Pulse Ox 98 05/10/18 05:30 Intake & Output 05/09/18 05/10/18 05/10/18 18:59 06:59 18:59 Intake Total 520 Output Total 2500 Balance 520 -2500 Intake: Oral 520 Output: Urine 2500 Other: # Voids 3 - Exam General: Appears stated age, very pleasant, in no acute distress Neck: Normocephalic and atraumatic, conjunctivae pink and sclerae icteric, mucous membranes moist and pink. No masses in the neck or tracheal shifts Lungs: Clear to auscultation with no dullness to percussion Heart: Regular, no abnormal sounds, gallops or friction rubs Abdomen: Soft, no tenderness, bowel sounds present. No masses or organomegalies Extremities: No clubbing, cyanosis or edema Neurologic: Alert and oriented 3, cranial nerves grossly intact, no gross sensory or motor abnormalities. No flapping tremors - Labs CBC & Chem 7: 05/10/18 08:53 05/10/18 08:09 Labs: Abnormal Lab Results - Last 24 Hours (Table) 05/09/18 05/09/18 05/09/18 Range/Units 08:42 08:42 17:06 RBC (3.80-5.40) m/uL MCV (80.0-100.0) fL PT (9.0-12.0) sec INR (<1.2) Chloride 108 H (98-107) mmol/L Carbon Dioxide (22-30) mmol/L Glucose 139 H (74-99) mg/dL POC Glucose (mg/dL) 74 L (75-99) mg/dL Magnesium 0.9 L* (1.6-2.3) mg/dL Iron 221 H (50-170) ug/dL Iron Saturation 60.71 H (12.00-45.00) Ferritin 544.4 H (10.0-291.0) ng/mL Total Bilirubin 4.8 H (0.2-1.3) mg/dL AST 221 H (14-36) U/L ALT 134 H (9-52) U/L Alkaline Phosphatase 146 H (38-126) U/L Ammonia (<30) umol/L Total Protein 6.0 L (6.3-8.2) g/dL Albumin 3.1 L (3.5-5.0) g/dL 05/09/18 05/10/18 05/10/18 Range/Units 20:48 06:58 08:09 RBC (3.80-5.40) m/uL MCV (80.0-100.0) fL PT (9.0-12.0) sec INR (<1.2) Chloride 115 H (98-107) mmol/L Carbon Dioxide 17 L (22-30) mmol/L Glucose (74-99) mg/dL POC Glucose (mg/dL) 141 H 72 L (75-99) mg/dL Magnesium 1.5 L (1.6-2.3) mg/dL Iron (50-170) ug/dL Iron Saturation (12.00-45.00) Ferritin (10.0-291.0) ng/mL Total Bilirubin 4.1 H (0.2-1.3) mg/dL AST 142 H (14-36) U/L ALT 99 H (9-52) U/L Alkaline Phosphatase (38-126) U/L Ammonia (<30) umol/L Total Protein 5.5 L (6.3-8.2) g/dL Albumin 2.7 L (3.5-5.0) g/dL 05/10/18 05/10/18 05/10/18 Range/Units 08:09 08:09 08:53 RBC 3.54 L (3.80-5.40) m/uL MCV 100.2 H (80.0-100.0) fL PT 12.9 H (9.0-12.0) sec INR 1.4 H (<1.2) Chloride (98-107) mmol/L Carbon Dioxide (22-30) mmol/L Glucose (74-99) mg/dL POC Glucose (mg/dL) (75-99) mg/dL Magnesium (1.6-2.3) mg/dL Iron (50-170) ug/dL Iron Saturation (12.00-45.00) Ferritin (10.0-291.0) ng/mL Total Bilirubin (0.2-1.3) mg/dL AST (14-36) U/L ALT (9-52) U/L Alkaline Phosphatase (38-126) U/L Ammonia 82 H (<30) umol/L Total Protein (6.3-8.2) g/dL Albumin (3.5-5.0) g/dL Assessment and Plan Assessment: Abnormal liver enzymes and nonspecific abdominal symptoms. The possibility of medication effects on the liver would have to be considered especially in light of the trending down of her levels. Macrobid, which she received for urinary tract infection prior to the onset of her illness in March could cause such a picture. Certainly, chronic liver disease with superimposed acute insult is a possibility. Plan: Agree with your current management. We will continue to monitor closely and follow with you with interest. Contingency would be to perform a liver biopsy as was previously discussed.
[2018-05-10] MEDS: LACTULOSE 20 GM/30 ML CUP PO PRN (16:27)
[2018-05-10 17:12] LABS: Glucose,Whole Blood 84 mg/dL (75-99)
--- NOTE | 2018-05-10 17:59 | PN ---
PROGRESS NOTE DATE OF SERVICE: 05/10/2018. This 68-year-old woman who was admitted with abdominal pain, possible acute hepatitis, also had chronic liver disease, also. No chest pain. No palpitations. No fever. Patient also had high ammonia which is still elevated at 82 right now. No chest pain. No palpitations. No fever. EXAM: Alert and oriented x3. Pulse 72, blood pressure is 97/72, respirations 16, temperature 97.2, pulse ox 98% room air. HEENT: Conjunctivae normal. Oral mucosa moist. NECK: No jugular venous distention. No carotid bruits. No lymph node enlargement. CARDIOVASCULAR: S1, S2 muffled. RESPIRATORY: Breath sounds diminished in the bases. A few rhonchi. No crackles. ABDOMEN: Soft, nontender. No mass palpable. LEGS: No edema. No swelling. NERVOUS SYSTEM: No focal deficits. LAB STUDIES: At this time show labs are WBC 4.4, hemoglobin 11.6. Sodium 141, potassium 4.2, magnesium is 1.5. Other labs are noted. ASSESSMENT: 1. Abdominal pain, possible acute alcoholic hepatitis. 2. Chronic liver disease secondary to alcohol. 3. Hyperammonemia. 4. Diarrhea. Clostridium difficile ruled out. 5. Diabetes mellitus type 2. 6. Hypertension. 7. 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 8. History of nicotine dependence. 9. Hypomagnesemia. RECOMMENDATIONS AND DISCUSSION: Recommend to continue current medical management and symptomatic treatment. Otherwise at this time, we will monitor the patient closely. Guarded prognosis. Further recommendations to follow. Replace magnesium. MMODL / IJN: [id number] /
[2018-05-10 20:34] LABS: Glucose,Whole Blood 75 mg/dL (75-99)
[2018-05-11] MEDS: MORPHINE SULFATE 4 MG/ML SYRINGE IV PRN ×5 (00:39→21:15)
[2018-05-11 06:59] LABS: Glucose,Whole Blood 78 mg/dL (75-99)
[2018-05-11] MEDS: INSULIN ASPART 100 UNIT/ML 1 ML 10 ML VIAL SQ SCH ×4 (07:57→21:03)
[2018-05-11] MEDS: GABAPENTIN 400 MG CAP PO SCH ×3 (08:02→21:10)
[2018-05-11] MEDS: DICYCLOMINE 20 MG TAB PO SCH ×4 (08:02→21:10)
[2018-05-11] MEDS: metFORMIN 500 MG TAB PO SCH ×2 (08:02→17:02)
[2018-05-11] MEDS: DULoxetine HCL 60 MG CAPSULE.DR PO SCH ×2 (08:02→21:10)
[2018-05-11] MEDS: RIFAXIMIN 550 MG TABLET PO SCH ×2 (08:02→21:11)
[2018-05-11] MEDS: PANTOPRAZOLE 40 MG/10 ML VIAL IV SCH (08:03)
[2018-05-11] MEDS: LINAGLIPTIN 5 MG TABLET PO SCH (08:03)
[2018-05-11] MEDS: FENOFIBRATE 160 MG TAB PO SCH (08:03)
[2018-05-11 08:34] LABS: Basophils % (A) 0 %; Eosinophils % (A) 0 %; HGB 12.3 gm/dL (11.4-16.0); Lymphocytes % (A) 39 %; MCH 32.9 pg (25.0-35.0); MCHC 33.2 g/dL (31.0-37.0); MCV 99.2 fL (80.0-100.0); Mean Platelet Volume 7.1; Monocytes # (A) 0.3 k/uL (0-1.0); Monocytes % (A) 7 %; Neutrophils # (A) 2.6 k/uL (1.3-7.7); Neutrophils % (A) 52 %; Platelet Count 209 k/uL (150-450); RBC 3.73 m/uL (3.80-5.40); RDW 14.8 % (11.5-15.5); WBC 5.1 k/uL (3.8-10.6)
[2018-05-11 08:35] LABS: INR 1.4 (<1.2); Prothrombin Time 12.7 sec (9.0-12.0)
[2018-05-11 08:39] LABS: ALT 103 U/L (9-52); AST 126 U/L (14-36); Albumin 3.2 g/dL (3.5-5.0); Alkaline Phosphatase 162 U/L (38-126); Anion Gap 7 mmol/L; Blood Urea Nitrogen 4 mg/dL (7-17); Carbon Dioxide 24 mmol/L (22-30); Chloride 108 mmol/L (98-107); Glucose 79 mg/dL (74-99); Magnesium 1.3 mg/dL (1.6-2.3); Potassium 4.2 mmol/L (3.5-5.1); Sodium 139 mmol/L (137-145); Total Protein 6.1 g/dL (6.3-8.2)
[2018-05-11] MEDS ORDERED: Magnesium Replacement Protocol 1 EACH MISC MISCELLANE PRN (10:22)
[2018-05-11] MEDS: LACTULOSE 20 GM/30 ML CUP PO PRN (12:20)
[2018-05-11] MEDS: MAGNESIUM SULFATE-D5W PMX 1 GM in DEXTROSE/WATER 1 100ML.BAG IVPB SCH ×3 (12:20→14:52)
[2018-05-11 12:27] LABS: Glucose,Whole Blood 87 mg/dL (75-99)
[2018-05-11] MEDS ORDERED: MAGNESIUM SULFATE-D5W PMX 1 GM in DEXTROSE/WATER 1 100ML.BAG IVPB ONE (15:30)
[2018-05-11] MEDS: ONDANSETRON 4 MG/2 ML VIAL IVP PRN (17:06)
[2018-05-11 17:28] LABS: Glucose,Whole Blood 91 mg/dL (75-99)
--- NOTE | 2018-05-11 20:42 | PN ---
PROGRESS NOTE DATE OF SERVICE: 05/11/2018 INTERVAL HISTORY: This 68-year-old woman was admitted with abdominal pain, possible alcoholic hepatitis, also had hepatic encephalopathy. The patient is being closely monitored. No chest pain. No palpitations. No fever. PT/OT is evaluating the patient closely. EXAM: Alert and oriented x1. Pulse 80, blood pressure 140/60, respirations 16, temperature 97.8, pulse ox 98 percent on room air. HEENT: Conjunctivae normal. Oral mucosa moist. NECK: No jugular venous distention. CARDIOVASCULAR: S1, S2 muffled. RESPIRATORY: Breath sounds diminished in the bases. No rhonchi. No crackles. Abdomen is soft, obese, nontender. Legs are no edema, no swelling. LABS: CBC within normal limits. INR 1.4. Total bilirubin is 1.3, AST is 126, ALT is 103. Stool WBC positive. ASSESSMENT: 1. Abdominal pain possible acute alcoholic hepatitis. 2. Chronic liver disease secondary to alcohol. 3. Hyperammonemia. 4. Diarrhea. C difficile ruled out. 5. Diabetes mellitus type 2. 6. Hypertension. 7. 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 8. History of nicotine dependence. 9. Hypomagnesemia. RECOMMENDATIONS AND DISCUSSION: Recommend to continue current medications, continue with monitoring. Symptomatic treatment. Pneumonia is improving at this time. I recommend continue the lactulose. PT/OT evaluation. Guarded prognosis. Further recommendations to follow. MMODL / MARIA GUADALUPEN: [id number] /
[2018-05-11 20:48] LABS: Glucose,Whole Blood 109 mg/dL (75-99)
[2018-05-12 07:10] LABS: Glucose,Whole Blood 75 mg/dL (75-99)
[2018-05-12] MEDS: INSULIN ASPART 100 UNIT/ML 1 ML 10 ML VIAL SQ SCH ×4 (07:33→20:31)
[2018-05-12] MEDS: PANTOPRAZOLE 40 MG/10 ML VIAL IV SCH (07:40)
[2018-05-12] MEDS: MORPHINE SULFATE 4 MG/ML SYRINGE IV PRN (07:40)
[2018-05-12] MEDS: metFORMIN 500 MG TAB PO SCH ×2 (07:40→17:06)
[2018-05-12] MEDS: ONDANSETRON 4 MG/2 ML VIAL IVP PRN (07:40)
[2018-05-12] MEDS: FENOFIBRATE 160 MG TAB PO SCH (07:41)
[2018-05-12] MEDS: DICYCLOMINE 20 MG TAB PO SCH ×4 (07:41→20:31)
[2018-05-12] MEDS: GABAPENTIN 400 MG CAP PO SCH ×3 (07:41→20:31)
[2018-05-12] MEDS: DULoxetine HCL 60 MG CAPSULE.DR PO SCH ×2 (07:41→20:31)
[2018-05-12] MEDS: LINAGLIPTIN 5 MG TABLET PO SCH (07:41)
[2018-05-12] MEDS: RIFAXIMIN 550 MG TABLET PO SCH ×2 (07:42→20:31)
[2018-05-12 08:23] LABS: Basophils % (A) 0 %; Eosinophils % (A) 0 %; HCT 37.1 % (34.0-46.0); HGB 12.1 gm/dL (11.4-16.0); Lymphocytes # (A) 1.4 k/uL (1.0-4.8); Lymphocytes % (A) 26 %; MCH 32.3 pg (25.0-35.0); MCHC 32.6 g/dL (31.0-37.0); MCV 99.1 fL (80.0-100.0); Mean Platelet Volume 7.4; Monocytes # (A) 0.4 k/uL (0-1.0); Monocytes % (A) 7 %; Neutrophils # (A) 3.5 k/uL (1.3-7.7); Neutrophils % (A) 65 %; Platelet Count 213 k/uL (150-450); RBC 3.74 m/uL (3.80-5.40); RDW 14.8 % (11.5-15.5); WBC 5.4 k/uL (3.8-10.6)
[2018-05-12 08:43] LABS: ALT 86 U/L (9-52); AST 93 U/L (14-36); Albumin 3.1 g/dL (3.5-5.0); Alkaline Phosphatase 163 U/L (38-126); Anion Gap 6 mmol/L; Blood Urea Nitrogen 4 mg/dL (7-17); Calcium 9.1 mg/dL (8.4-10.2); Carbon Dioxide 27 mmol/L (22-30); Chloride 105 mmol/L (98-107); Glucose 86 mg/dL (74-99); Magnesium 1.5 mg/dL (1.6-2.3); Potassium 4.4 mmol/L (3.5-5.1); Sodium 138 mmol/L (137-145); Total Bilirubin 4.2 mg/dL (0.2-1.3); Total Protein 6.1 g/dL (6.3-8.2)
[2018-05-12] MEDS ORDERED: Magnesium Replacement Protocol 1 EACH MISC MISCELLANE PRN (11:14)
[2018-05-12 12:25] LABS: Glucose,Whole Blood 83 mg/dL (75-99)
[2018-05-12] MEDS: MAGNESIUM OXIDE 400 MG TAB PO SCH ×3 (12:46→20:31)
[2018-05-12] MEDS: MAGNESIUM SULFATE-D5W PMX 1 GM in DEXTROSE/WATER 1 100ML.BAG IVPB SCH ×2 (12:46→14:05)
[2018-05-12] MEDS: HYDROcodone/APAP 5-325MG 1 EACH TAB PO PRN ×3 (12:50→21:17)
[2018-05-12] MEDS: LACTULOSE 20 GM/30 ML CUP PO PRN (15:53)
--- NOTE | 2018-05-12 16:29 | P.PN ---
Subjective Progress Note Date: 05/12/18 Principal diagnosis: Elevated liver function tests, diarrhea Patient reports feeling much better but does note that she had a fall overnight. Able to tolerate diet. No complaints of abdominal pain. No reports of confusion. She now reports 2 bowel movements today with improvement of her diarrhea. Objective - Vital Signs Vital signs: Vital Signs Temp 98.3 F 05/12/18 14:49 Pulse 79 05/12/18 14:49 Resp 18 05/12/18 14:49 BP 118/65 05/12/18 14:49 Pulse Ox 92 L 05/12/18 14:49 Intake & Output 05/11/18 05/12/18 05/12/18 18:59 06:59 18:59 Intake Total 320 440 Balance 320 440 Intake: Oral 320 440 Other: # Voids 3 4 3 # Bowel Movements 0 - Exam On physical examination, patient appears comfortable in no apparent distress. HEENT: Unremarkable. Conjunctivae pink. Sclerae anicteric, improved from previous exam. Oral cavity no lesions. NECK: No JVD or lymph node enlargement. CHEST: Clear to auscultation. HEART: Regular rate and rhythm. ABDOMEN: Soft. Bowel sounds are positive. No organomegaly. EXTREMITIES: No pedal edema. SKIN: No rashes. NEUROLOGIC: Alert and oriented x3. No focal deficits. No asterixis. - Labs CBC & Chem 7: 05/12/18 07:57 05/12/18 07:57 Labs: Abnormal Lab Results - Last 24 Hours (Table) 05/11/18 05/12/18 05/12/18 Range/Units 20:29 07:57 07:57 RBC 3.74 L (3.80-5.40) m/uL BUN 4 L (7-17) mg/dL POC Glucose (mg/dL) 109 H (75-99) mg/dL Magnesium 1.5 L (1.6-2.3) mg/dL Total Bilirubin 4.2 H (0.2-1.3) mg/dL AST 93 H (14-36) U/L ALT 86 H (9-52) U/L Alkaline Phosphatase 163 H (38-126) U/L Total Protein 6.1 L (6.3-8.2) g/dL Albumin 3.1 L (3.5-5.0) g/dL Assessment and Plan (1) Bilirubinemia Narrative/Plan: Elevation in the patient's liver enzymes in both a cholestatic and hepatocellular picture. This is consistent with alcoholic liver disease although the patient does not have evidence of cirrhosis on imaging elevations in her bilirubin and INR do suggest some compromise in hepatic function. Acute insult with Tylenol and Macrobid in the recent past also noted. Serologic workup, with no evidence of hemochromatosis, Awais's or other disease. No evidence of obstruction of the bile ducts on ultrasound and CT with no gallstones noted and normal CBD size. Bilirubin has improved to 4.2 today with alkaline phosphatase of 163, AST 93 and ALT 86. Current Visit: Yes Status: Acute Code(s): E80.6 - OTHER DISORDERS OF BILIRUBIN METABOLISM SNOMED Code(s): 11363527 (2) Abdominal pain Narrative/Plan: Nonspecific with unclear etiology. Related to gastritis, peptic ulcer disease, a functional disorder or other etiology. Currently improved. Current Visit: Yes Status: Acute Code(s): R10.9 - UNSPECIFIED ABDOMINAL PAIN SNOMED Code(s): 89616882 (3) Increased ammonia level Narrative/Plan: Mildly increased ammonia level, no evidence of asterixis on physical exam suggests hepatic encephalopathy. Patient compliant with lactulose therapy. Current Visit: Yes Status: Acute Code(s): R79.89 - OTHER SPECIFIED ABNORMAL FINDINGS OF BLOOD CHEMISTRY SNOMED Code(s): 442829155 (4) Nausea & vomiting Narrative/Plan: Resolved. Current Visit: Yes Status: Acute Code(s): R11.2 - NAUSEA WITH VOMITING, UNSPECIFIED SNOMED Code(s): 49304451 (5) Elevated liver enzymes Narrative/Plan: Both hepatocellular and cholestatic, secondary to above, continues to improve. Current Visit: No Status: Acute Code(s): R74.8 - ABNORMAL LEVELS OF OTHER SERUM ENZYMES SNOMED Code(s): 643934330 (6) Jaundice Narrative/Plan: Secondary to hyperbilirubinemia. Improved. Current Visit: No Status: Acute Code(s): R17 - UNSPECIFIED JAUNDICE SNOMED Code(s): 86434227 Plan: 1. Continue to monitor. 2. INR has remained stable and liver enzymes have continued to trend down. 3. Serologic workup for liver disease negative to date. Elevated iron likely secondary to alcoholic liver disease. 4. Continue Xifaxan and lactulose titrated to 2-3 bowel movements per day. 5. Continue alcohol abstinence, monitor for symptoms of withdrawal. 6. Patient currently has established care with [facility] where she is seeing a precision lens centerer and edger. She reports that there is discussion over possible liver biopsy, and will continue to follow with them after discharge. 7. Thank you for allowing us to participate in the care of this patient will continue to follow.
--- NOTE | 2018-05-12 16:53 | P.PN ---
Subjective Progress Note Date: 05/12/18 Progress note being dictated for Dr. Menjivar. Interval history: This is a 68-year-old female admitted with abdominal pain, possibly hepatitis in a patient with history of chronic liver disease secondary to alcohol and multiple other medical issues. Multiple episodes of diarrhea today, ruling out C. difficile colitis. Complains of mild diffuse abdominal cramping. LFTs remain minimally unchanged, ammonia 67. Maintained on IV fluids. CT of abdomen and pelvis reporting fluid distended colon, diarrhea. GI consult in place with recommendations pending. INR 1.4. 05/09/2018 evaluated by GI with recommendations noted. Diarrhea improving. Maintained on Xifaxan. Magnesium 0.9, receiving supplements., LFTs elevated- slowly improving, T bili down to 4.8. Mild hypotension, maintained on IV fluids. Chest x-ray reporting no acute process , incidental finding of partial intrathoracic stomach. Evaluated by GI with recommendations noted. 05/12/2018 tolerating diet better, no nausea vomiting. Reports 2 bowel movements today. LFTslowly improving.Mild confusion. Complains of weakness, gait instability, falls. Denies chest pain, palpitations. Currently being evaluated by PT/OT. Objective - Vital Signs Vital signs: Vital Signs Temp 98.3 F 05/12/18 14:49 Pulse 79 05/12/18 14:49 Resp 18 05/12/18 14:49 BP 118/65 05/12/18 14:49 Pulse Ox 92 L 05/12/18 14:49 Intake & Output 05/11/18 05/12/18 05/12/18 18:59 06:59 18:59 Intake Total 320 440 Balance 320 440 Intake: Oral 320 440 Other: # Voids 3 4 3 # Bowel Movements 0 - Exam PHYSICAL EXAM: VITAL SIGNS: As above GENERAL: Sitting up in bed, no acute distress. Tired appearing HEENT: Conjunctivae normal. eyes normal. Oral mucosa moist NECK: No JVD. No thyroid enlargement. No LNs CARDIOVASCULAR: S1, S2 muffled. No murmur RESPIRATION: Breath sounds diminished in the bases. Occasional rhonchi. no crackles. ABDOMEN: Soft, obese , nontender. No guarding. no masses palpable. Bowel sounds heard. LEGS: No edema. no swelling PSYCHIATRY: Alert and oriented -3, mood and affect normal. NERVOUS SYSTEM: Cranial N 2-12 grossly normal. Moves all 4 limbs. Diffuse weakness No focal deficits. Skin: no ulcer no rash Lymphatic system. No LN neck axilla or groin. - Labs CBC & Chem 7: 05/12/18 07:57 05/12/18 07:57 Labs: Abnormal Lab Results - Last 24 Hours (Table) 05/11/18 05/12/18 05/12/18 Range/Units 20:29 07:57 07:57 RBC 3.74 L (3.80-5.40) m/uL BUN 4 L (7-17) mg/dL POC Glucose (mg/dL) 109 H (75-99) mg/dL Magnesium 1.5 L (1.6-2.3) mg/dL Total Bilirubin 4.2 H (0.2-1.3) mg/dL AST 93 H (14-36) U/L ALT 86 H (9-52) U/L Alkaline Phosphatase 163 H (38-126) U/L Total Protein 6.1 L (6.3-8.2) g/dL Albumin 3.1 L (3.5-5.0) g/dL Assessment and Plan Assessment: 1. Abdominal pain, possible acute alcoholic hepatitis in a patient with history of chronic liver disease secondary to alcohol 2. Diarrhea, C. difficile colitis ruled out 3. Diabetes mellitus 4. Hypertension 5. Hyperammonemia 6. Coagulopathy, secondary to chronic liver disease 7. History of nicotine dependence Plan: Continue on current medication regime ,monitoring and symptomatic treatment. PT/OT. Magnesium being supplemented.LFTs continue to improve. Close monitoring of electrolytes,LFT's with repeat labs ordered for a.m. Discharge planning in progress for tomorrow, possible subacute rehab. The impression and plan of care has been dictated as directed. : I performed a history and examination of this patient, discussed the same with the dictator. I agree with the dictator's note ,documented as a scribe. Any additional findings or plans will be noted.
[2018-05-12 17:04] LABS: Glucose,Whole Blood 151 mg/dL (75-99)
[2018-05-12 20:30] LABS: Glucose,Whole Blood 93 mg/dL (75-99)
[2018-05-13] MEDS: HYDROcodone/APAP 5-325MG 1 EACH TAB PO PRN ×2 (01:15→09:01)
[2018-05-13 07:15] LABS: Glucose,Whole Blood 116 mg/dL (75-99)
[2018-05-13] MEDS: INSULIN ASPART 100 UNIT/ML 1 ML 10 ML VIAL SQ SCH ×3 (07:20→17:11)
[2018-05-13] MEDS: PANTOPRAZOLE 40 MG/10 ML VIAL IV SCH (07:29)
[2018-05-13] MEDS: DICYCLOMINE 20 MG TAB PO SCH ×3 (07:31→17:38)
[2018-05-13] MEDS: MAGNESIUM OXIDE 400 MG TAB PO SCH ×2 (07:31→15:04)
[2018-05-13] MEDS: RIFAXIMIN 550 MG TABLET PO SCH (07:31)
[2018-05-13] MEDS: DULoxetine HCL 60 MG CAPSULE.DR PO SCH (07:32)
[2018-05-13] MEDS: GABAPENTIN 400 MG CAP PO SCH ×2 (07:32→15:04)
[2018-05-13] MEDS: metFORMIN 500 MG TAB PO SCH ×2 (07:32→17:38)
[2018-05-13] MEDS: LINAGLIPTIN 5 MG TABLET PO SCH (07:32)
[2018-05-13] MEDS: FENOFIBRATE 160 MG TAB PO SCH (07:32)
[2018-05-13 08:57] LABS: ALT 70 U/L (9-52); AST 83 U/L (14-36); Albumin 3.3 g/dL (3.5-5.0); Alkaline Phosphatase 193 U/L (38-126); Anion Gap 9 mmol/L; Blood Urea Nitrogen 8 mg/dL (7-17); Calcium 9.6 mg/dL (8.4-10.2); Carbon Dioxide 25 mmol/L (22-30); Chloride 104 mmol/L (98-107); Glucose 95 mg/dL (74-99); Magnesium 1.4 mg/dL (1.6-2.3); Sodium 138 mmol/L (137-145); Total Bilirubin 3.8 mg/dL (0.2-1.3); Total Protein 6.4 g/dL (6.3-8.2)
[2018-05-13] MEDS ORDERED: Magnesium Replacement Protocol 1 EACH MISC MISCELLANE PRN (09:13)
[2018-05-13 09:31] LABS: Basophils % (A) 0 %; Eosinophils % (A) 0 %; HCT 39.9 % (34.0-46.0); HGB 13.1 gm/dL (11.4-16.0); Lymphocytes # (A) 1.9 k/uL (1.0-4.8); Lymphocytes % (A) 31 %; MCH 32.9 pg (25.0-35.0); MCHC 32.7 g/dL (31.0-37.0); MCV 100.6 fL (80.0-100.0); Macrocytosis Slight; Mean Platelet Volume 8.4; Monocytes # (A) 0.3 k/uL (0-1.0); Monocytes % (A) 6 %; Neutrophils # (A) 3.6 k/uL (1.3-7.7); Neutrophils % (A) 60 %; Platelet Count 183 k/uL (150-450); RBC 3.97 m/uL (3.80-5.40); WBC 5.9 k/uL (3.8-10.6)
[2018-05-13] MEDS: MAGNESIUM SULFATE-D5W PMX 1 GM in DEXTROSE/WATER 1 100ML.BAG IVPB SCH ×3 (09:50→11:54)
[2018-05-13] MEDS: LORazepam 0.5 MG TAB PO PRN ×2 (11:53→17:38)
[2018-05-13 12:17] LABS: Glucose,Whole Blood 100 mg/dL (75-99)
[2018-05-13 12:42] LABS: Liver/Kidney Microsome Antibod 1.2 UNITS (<=20)
[2018-05-13 14:56] VITALS: BP 116/72; PULSE 81; RESP 20; TEMP 98
[2018-05-13] MEDS: IBUPROFEN 400 MG TAB PO PRN (15:04)
[2018-05-13 17:02] LABS: Glucose,Whole Blood 97 mg/dL (75-99)
--- NOTE | 2018-05-14 21:36 | DS ---
DISCHARGE SUMMARY DATE OF SERVICE: 05/13/2018 FINAL DIAGNOSES: 1. Abdominal pain, possible acute alcoholic hepatitis with history of chronic liver disease secondary to alcohol. 2. Diarrhea. C difficile ruled out. 3. Diabetes type 2. 4. Hypertension. 5. Hyperammonemia. 6. 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 7. History of nicotine dependence. DISCHARGE DISPOSITION: The patient is being discharged in stable condition with guarded prognosis. Total time taken 35 minutes. HISTORY: This 68-year-old woman with past medical history of multiple medical problems, was admitted with abdominal pain, hepatitis and multiple medical problems. The patient also had hyperammonemia, treated symptomatically. Patient improved significantly. On exam, vital signs stable. Cardiovascular: S1, S2. Abdomen soft, nontender. Central nervous system: No focal deficits. The patient was recommended ECF rehab, but at this time the patient refused and would like to go home. Patient seen by Gastroenterology during the hospitalization. Currently hemoglobin 13.1. LFTs are elevated. DISCHARGE ADVICE AND MEDICATIONS: 1. Diet is cardiac diet. 2. Activity limited until followup. 3. No EtOH. 4. Follow up with Dr. Dorina Burger in 2-3 days. 5. Follow up with Gastroenterology as recommended. MEDICATIONS ARE: As follows: 1. Bentyl 10 mg q.i.d. 2. Cymbalta 60 mg b.i.d. 3. Fenofibrate 135 mg. 4. Neurontin 400 mg t.i.d. 5. Zestril 2.5 mg daily. 6. Januvia 50 mg. 7. Tylenol 650 q.6h p.r.n. 8. Folic acid 1 mg daily. 9. Cephulac 20 g t.i.d. p.r.n. 10.Ativan 0.5 mg t.i.d. p.r.n. 11.Magnesium oxide 400 mg t.i.d. 12.Metformin 500 mg p.o. b.i.d. 13.Multivitamins 1 p.o. daily. 14.Omeprazole 20 mg b.i.d. 15.Xifaxan 550 mg p.o. b.i.d. 16.Vitamin B1 100 mg p.o. daily. Once again, the patient discharged in stable condition with guarded prognosis. MMODL / IJN: [id number] /
== END 2018-05-13 18:22 | disposition home health service (06) | DRG 433 ==
LOC: EC 13:54 → 4MS4W 20:02
PROVIDERS: ADMIT Internal Medicine; ATTEND Internal Medicine
DX: K70.10 Alcoholic hepatitis without ascites (principal); D68.4 Acquired coagulation factor deficiency; E72.20 Disorder of urea cycle metabolism, unspecified; N39.0 Urinary tract infection, site not specified; F10.20 Alcohol dependence, uncomplicated; E11.9 Type 2 diabetes mellitus without complications; E78.5 Hyperlipidemia, unspecified; E83.42 Hypomagnesemia; F32.9 Major depressive disorder, single episode, unspecified; F41.9 Anxiety disorder, unspecified; I10 Essential (primary) hypertension; K44.9 Diaphragmatic hernia without obstruction or gangrene; K70.9 Alcoholic liver disease, unspecified; K76.0 Fatty (change of) liver, not elsewhere classified; R19.7 Diarrhea, unspecified; R26.81 Unsteadiness on feet; Z87.891 Personal history of nicotine dependence; Z79.899 Other long term (current) drug therapy; Z79.84 Long term (current) use of oral hypoglycemic drugs; Z88.6 Allergy status to analgesic agent; Z88.1 Allergy status to other antibiotic agents; Z88.0 Allergy status to penicillin; Z90.49 Acquired absence of other specified parts of digestive tract; Z80.3 Family history of malignant neoplasm of breast; W19.XXXA Unspecified fall, initial encounter; Y92.239 Unspecified place in hospital as the place of occurrence of the external cause
CPT/HCPCS: 36415; 71045; 74018; 74176; 76705; 80053; 81003; 82140; 82150; 82248; 82390; 82728; 82787; 83516; 83540; 83550; 83630; 83690; 83735; 85025; 85610; 86038; 86376; 87045; 87046; 87324; 93005; 96361; 96374; 96375; 96376; 99285

== ENCOUNTER → 2018-10-07 | Outpatient (CLI) | payer MEDICARE ==
[2018-10-07 20:51] LABS: Albumin 4.6 g/dL (3.80-4.90); Anion Gap 11.4 mmol/L (4.00-12.00); Carbon Dioxide 28.6 mmol/L (21.6-31.8); Globulin 2.3 g/dL (1.6-3.3); LDL Cholesterol,Calculated 200.8 mg/dL (0.0-131.0); Potassium 4.6 mmol/L (3.5-5.5); Total Bilirubin 0.5 mg/dL (0.2-1.2); Total Protein 6.9 g/dL (6.2-8.2); VLDL Calculation 65.2 mg/dL (5.00-40.00)
[2018-10-07 22:25] LABS: Hemoglobin A1C 16.7 % (4.0-6.0)
== END ==
LOC: LABWHC1 12:24
PROVIDERS: ATTEND Internal Medicine Endocrinology, Diabetes & Metabolism
DX: E11.65 Type 2 diabetes mellitus with hyperglycemia (principal)
CPT/HCPCS: 36415; 80053; 80061; 82043; 82570; 83036; 84443